=== PATIENT | male | born 1980 | race Hispanic/Latino ===

== ENCOUNTER 2018-11-23 05:38 | Observation (INO) ==
[2018-11-22 16:14] LABS: HEMATOCRIT 42.7 % (42.0-52.0); HEMOGLOBIN 13.6 g/dL (14.0-18.0); MCH 28.2 PG (27-31); MCHC 31.9 g/dL (33-37); MCV 88.4 FL (81-99); RBC 4.83 XMIL (4.7-6.1); RDW 12.5 % (11.5-14.5); WBC 10.6 X1000 (4.8-10.8)
[2018-11-22 16:27] LABS: INR 1.01; PROTIME 14.1 Seconds (11.0-16.0)
[2018-11-22 16:49] LABS: AGAP 11; BUN 11 mg/dL (8-22); CALCIUM 10.1 mg/dL (8.8-10.2); CHLORIDE 97 mmol/L (98-107); COSMO 269; CREATININE 0.7 mg/dL (0.7-1.2); ESTIMATED GFR > 60; GLUCOSE 115 mg/dL (70-104); POTASSIUM 4.1 mmol/L (3.5-5.1); SODIUM 134 mmol/L (136-145); TCO2 26 mmol/L (25-35)
[2018-11-23] MEDS ORDERED: LR 1,000 ML ONE ×2 (06:09→09:17)
[2018-11-23] MEDS ORDERED: KEFZOL 1 GM/D5W 2 GM/100 ML IVPB ONE (06:09)
[2018-11-23] MEDS ORDERED: FENTANYL ONE ×2 (07:32→08:05)
[2018-11-23] MEDS ORDERED: VALIUM ONE (07:32)
[2018-11-23] MEDS ORDERED: DIPRIVAN 1% ONE (07:32)
[2018-11-23] MEDS ORDERED: ZOFRAN ONE (07:35)
[2018-11-23] MEDS ORDERED: MORPHINE ONE (07:51)
[2018-11-23] MEDS ORDERED: MORPHINE IV PRN (09:24)
[2018-11-23] MEDS ORDERED: ZOFRAN IV PRN (09:30)
[2018-11-23] MEDS ORDERED: NORCO-7.5 ONE (09:56)
[2018-11-23] MEDS: LR 1,000 ML IV SCH (11:00)
[2018-11-23] MEDS ORDERED: FLU VACCINE IM ONE (11:25)
--- NOTE | 2018-11-23 13:22 | OPERATIVE NOTE ---
PROCEDURE DATE : 11/23/2018 PREOPERATIVE DIAGNOSES: 1. Penile cancer. 2. Right inguinal lymphadenopathy. POSTOPERATIVE DIAGNOSES: 1. Penile cancer. 2. Right inguinal lymphadenopathy. PROCEDURE PERFORMED: Partial penectomy with creation of neourethra. SURGEON: Iglesia Hdez MD MEDICARE COMPLIANCE AUDITOR: Roderikc Hampton MD ESTIMATED BLOOD LOSS: 20 mL. COMPLICATIONS: None. DRAINS: A 14 [place] silicone catheter. SPECIMENS REMOVED: Partial penectomy specimen. OPERATIVE FINDINGS: The patient has a firm mass present within the glands and distal shaft with adherent foreskin attached which was unable to be completely retracted back to visualize the tumor. The patient also has significant right inguinal lymphadenopathy and had originally undergone a biopsy by Dr. Oropeza at this location for concern for necrotic lymphadenopathy. The mass is firm and fixed both to the skin as well as the underlying subcutaneous tissues. Mass measures approximately 9-10 cm in size. Penile mass encompassed the distal 6 cm of the penis. I performed a partial penectomy with creation of neourethra and placed a 14- [place] silicone catheter. INDICATIONS FOR PROCEDURE: Mr. Rodríguez is a 38-year-old who initially presented to General Surgery for a groin mass on the right. The patient was taken for a biopsy which returned with moderate differentiated squamous cell carcinoma. He was referred to Urology for further evaluation. On exam, the patient had a very firm indurated mass present within the distal portion of the shaft and the glans of the penis. It was most prominent on the right side. The patient also had a large right inguinal lymph node that was fixed to the skin underlying tissue. Due to need to have a primary diagnosis of his cancer, the patient was consent for proceeding with partial versus complete penectomy for definitive diagnosis and remove primary site of cancer. Risks of this were discussed with the patient including bleeding, infection, urethral strictures, inability to perform the procedure or needing secondary procedures performed. After complete discussion, the patient and his family elected to proceed. DESCRIPTION OF PROCEDURE: After informed consent was obtained from the patient and his family, the patient was brought to the operating room and placed on the operating table in the supine position. He underwent general anesthesia and received preoperative antibiotics. The patient was then shaved and was prepped and draped in the usual sterile fashion. Preoperative time-out was performed with all parties in agreement, including anesthesia, surgical and nursing staff. Following this, his right inguinal area was inspected which showed a very firm indurated mass in the right groin as well as a very firm mass present within the distal penis itself. I attempted to place a glove over top of the penis and suture this in place, however, it did not stay very well. Subsequently, this was removed and the glans in the distal portion of the penis was wrapped with a Kerlix dressing to help with retraction. At which time an incision was marked on the shaft of the penis leaving approximately 4-5 cm of penile length and 1-2 cm proximal margin from the tumor specimen itself. This was outlined around the circumferential portion of the shaft with a slight V-shaped appearance at the ventral surface to leave excess ventral skin. I then using a 15 blade knife, excised this overlying skin circumferentially. I placed a tourniquet at the base of the penis with a Cathy drain. Then began using electrocautery to cauterize through the subcutaneous tissue and through the corpora. I did dissected out the dorsal venous complex and tied this off with a Vicryl suture and then excised remainder of any tissues. I was able to dissected out the urethral on the ventral surface. I did place a catheter to assist in outlining the urethra itself. I was able to dissect the corpus spongiosum away from the corpora cavernosum. Using a Cathy drain, I was able to pass this around the urethra and I dissected out the urethra for a length of approximately 1.5 to 2 cm longer than our proximal corporal cavernosal incision at which point using electrocautery, I bovied through the corpora completely. I was able to dissected through all of the corpora themselves with minimal bleeding. Once to the urethra, using a pair of Tenotomy scissors to create an adequate length of urethra, and subsequently the specimen was then removed in entirety. Following this, a new catheter was then obtained and inserted through the urethra into the bladder and inflated with 10 mL of sterile water. Attention was then placed to the corpora cavernosum. This was closed with a 2- 0 Vicryl in a running fashion, passing sutures both through the lateral corporal ponce as well as the septum. Good hemostasis was obtained and these were tied down to close over the corpora themselves at which point the tourniquet was removed and minimal bleeding was seen from the corporotomies, however, there was a small amount of bleeding on the lateral corpus cavernosum which was fulgurated. Good hemostasis was then obtained and attention was placed to forming the neourethra. The dorsal surface at the 12 o'clock position was then excised for a length of approximately 1 cm. Then starting on the ventral surface, 4-0 Vicryl were used to approximate the shaft skin to the urethra was then completed 180 degrees around the urethra. Following this, attention was placed to closing the dorsal penile skin, closing the subcutaneous tissue with a 4-0 Vicryl in a running fashion and then using 3-0 chromic suture to close the shaft skin in a running fashion until it was approximately 5 mm from the location of her dorsal urethral stitches, at which point I again used 4-0 Vicryl to create the dorsal attachment of the urethra using a Y stitch, fastening through the urethral mucosa with good eversion, and this showed good approximation and several other stitches were then intervening thrown in an interrupted fashion to bring the edges of the urethra to the skin. Following this, good hemostasis was visualized and approximation of the urethra to the skin tissue was seen circumferentially at which time Iodoform was then placed overlying the urethral tissue and a small Kerlix was then passed around the urethral stump and attached with silk tape. Next, in the inguinal area, there were 3 nylon sutures that were placed at the time of his inguinal lymph node biopsy by Dr. Oropeza. I had talked with Dr. Oropeza prior and he had recommend removal of these sutures at the end of the case, and these were removed intact. The patient's [place] catheter was placed to gravity drainage. All lap and suture counts were correct. The patient was awoken and was taken to recovery in stable condition. The patient will be monitored overnight. Will plan to hopefully discharge tomorrow. Dr. Roderick Hampton was my bricklayer's assistant and present for the entirety of the procedure. cc: Iglesia Hdez MD [facility]
[2018-11-23] MEDS: HEPARIN SUBQ SCH ×2 (15:32→17:20)
[2018-11-23] MEDS: KEFZOL 1 GM/D5W 1 GM/50 ML IVPB IV SCH ×2 (15:47→22:02)
[2018-11-23] MEDS ORDERED: PNEUMOVAX 23 IM ONE (16:00)
[2018-11-23] MEDS: NORCO-7.5 PO PRN ×2 (17:18→22:00)
[2018-11-23] MEDS ORDERED: PERIDEX MT SCH (21:00)
[2018-11-23] MEDS: COLACE PO SCH (22:00)
[2018-11-24] MEDS: NORCO-7.5 PO PRN ×2 (02:50→08:54)
[2018-11-24] MEDS: LR 1,000 ML IV SCH ×2 (02:50→05:36)
[2018-11-24] MEDS: HEPARIN SUBQ SCH (02:50)
[2018-11-24] MEDS: KEFZOL 1 GM/D5W 1 GM/50 ML IVPB IV SCH (05:35)
[2018-11-24 07:33] VITALS: BP 148/81
[2018-11-24] MEDS: COLACE PO SCH (08:34)
== END 2018-11-24 09:47 | disposition home or self-care (01) ==
LOC: OR 05:38 → 4N 05:38
PROVIDERS: ADMIT Urology; ATTEND Urology
CPT/HCPCS: 80048; 85027; 85610; 85730; 88305; 90471; 90686; 90732; 94761; 94799; 96372; 96374; 96375; 96376; A9270; G0008; G0009; G0378; G0379; J0690; J1644; J2270; J2405; J3010; J7120

== ENCOUNTER 2018-12-06 11:42 | Inpatient (IN) ==
[2018-12-06] MEDS ORDERED: REGLAN IV PRN (12:51)
[2018-12-06] MEDS ORDERED: PHENERGAN IV PRN (12:51)
--- NOTE | 2018-12-06 13:37 | HISTORY AND PHYSICAL ---
CHIEF COMPLAINT: The patient has been admitted for a 3-day treatment of his squamous cell carcinoma Penis and left inguinal lymph node. HISTORY OF PRESENT ILLNESS: Mr. Sean Suero is a 38-year-old male who has been followed up in our clinic for a penile mass and left inguinal lymph node mass. CT scan of the pelvis showed cm inguinal mass along with enlarged lymph nodes and mildly prominent iliac nodes. CT of the thorax and abdomen were negative for metastatic disease. Biopsy of the inguinal node revealed squamous cell carcinoma. The patient presented to the hospital for his first cycle of 3-day chemotherapy. The patient will be receiving Taxol, cisplatin, mannitol, and iphosphamide. We will monitor him very closely. 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 PAST SURGICAL HISTORY: Finger amputation and Port-A-Cath placement. ALLERGIES: No known drug allergies. HOME MEDICATION: Colace, [place] Port 7.5. Bactrim DS, bacitracin/polymyxin ointment. REVIEW OF SYSTEMS: Negative unless noted in HPI. PHYSICAL EXAMINATION: VITAL SIGNS: Temperature 97.8 degrees, heart rate 71, respiratory rate 19, blood pressure 140/97, saturating 100% on room air. GENERAL: Patient is awake, sitting up in bed. No acute distress noted. HEENT: Anicteric. Pupils PERRLA. Mucous membranes moist. NECK: Supple. Trachea midline. No JVD. LYMPH: No palpable lymphadenopathy, except of the left inguinal node. CHEST: Bilateral breath sounds clear to auscultation. CARDIOVASCULAR: S1 and S2, regular rate and rhythm. ABDOMEN: Soft, nontender. Bowel sounds present in all 4 quadrants. SKIN: Warm, dry, and intact. NEUROLOGIC: Alert and oriented x3. No focal deficits noted. LABORATORY DATA: White blood cell count 9.7, hemoglobin 12.7, hematocrit 40.0, platelets are 359. Sodium 137, potassium 4.5, BUN 11, creatinine 0.8. ASSESSMENT AND PLAN: 1. 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 The patient will be receiving cisplatin, mannitol, Ifex chemotherapy. This will be his first cycle. We will need to monitor very closely for any side effects. We will continue to monitor very closely. 2. Antinausea prophylaxis. Patient received Emend, Zofran and Decadron prior to treatment. The patient also has p.r.n. IV medications as ordered if needed. We will continue to monitor nausea closely. 3. Possible hematuria: We will monitor very closely for hematuria which is a side effect of medication. Patient will be receiving mesna daily over the next 3 days. We will continue to monitor very closely. 4. Neutropenia precautions: Patient will receive Neulasta prior to being discharged. We will also monitor for any fevers greater than 100.5. We will continue to monitor labs and CBCs very closely. 5. Supportive care: Patient will continue to get out of bed as much as possible. Patient will continue with protein shakes as instructed. Patient will continue with exercise as instructed as well. Dictated by VINNIE Traylor for Danis Sandoval MD Patient seen and examined. 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 He will receive Taxol, ifosfamide, cisplatin chemotherapy at monitor closely. Danis Sandoval M.D. cc: VINNIE Traylor MD [facility]
[2018-12-06] MEDS ORDERED: NS IV ONE ×6 (14:30→20:00)
[2018-12-06] MEDS ORDERED: ZOFRAN IV ONE (14:30)
[2018-12-06] MEDS ORDERED: DECADRON IV ONE (14:30)
[2018-12-06] MEDS ORDERED: NS 1,000 ML IV SCH (14:30)
[2018-12-06] MEDS ORDERED: EMEND 150 MG in NS 145 ML IV ONE (15:00)
[2018-12-06] MEDS ORDERED: [UNRECOGNIZED DRUG - OTHER] IV ONE ×2 (15:30→17:30)
[2018-12-06] MEDS ORDERED: MANNITOL IV ONE ×2 (15:30→17:30)
[2018-12-06] MEDS ORDERED: TAXOL IV ONE (16:30)
[2018-12-06] MEDS: ULTRAM PO PRN (18:16)
[2018-12-06] MEDS ORDERED: [UNRECOGNIZED DRUG - OTHER] IV ONE (20:00)
[2018-12-06] MEDS ORDERED: MESNA IV ONE (20:00)
--- NOTE | 2018-12-07 06:28 | GENERAL SURGERY CONSULTATION ---
DATE: 12/07/2018 REQUESTING PHYSICIAN: Dr. Sandoval. REASON FOR CONSULTATION: Port placement. HISTORY OF PRESENT ILLNESS: A 38-year-old male well known to me, who has got squamous cell cancer of his penis that is positive for lymph nodes. I initially saw him for the large lymph node. He has subsequently had partial resection of his penis and he has been started on chemotherapy. I was asked to place a port. The patient is without complaints right now. PAST MEDICAL HISTORY: Squamous cell carcinoma of the penis with inguinal lymphadenopathy. PAST SURGICAL HISTORY: Includes lymph node biopsy and penile resection. ALLERGIES: None. HOME MEDICATIONS: Reviewed. FAMILY HISTORY: Reviewed with patient, noncontributory. REVIEW OF SYSTEMS: A full 10-point review of systems obtained, negative except as specified in HPI. PHYSICAL EXAMINATION: Vital Signs: Patient is currently afebrile. His vital signs stable. General: No acute distress. HEENT: Normocephalic, atraumatic. Pupils equal, round, reactive to light. Mucous membranes moist. Oropharynx benign. Neck: Supple. Trachea midline. Cardiovascular: Regular rate and rhythm. Lungs: Grossly clear. Abdomen: Soft, nontender, nondistended. Extremities: Moves all extremities. Neurologic: Grossly intact. Skin: No signs of jaundice. Vascular: All extremities perfused. LABORATORY: None this morning as of yet IMAGING: None. ASSESSMENT AND PLAN: A 38-year-old gentleman with squamous cell carcinoma of the penis with lymphadenopathy. Squamous cell carcinoma. At this time, we will plan on placement of a port tomorrow. Make him NPO. We will have IV antibiotics ordered for insulation cutter and former to the operating room. We will get consent. Discussed with patient the risks, benefits, alternatives for the port placement. Risks including but not limited to bleeding, infection, risk of anesthesia, risk of pneumothorax discussed. Again, we will plan on placement tomorrow. cc: MD Danis Coburn MD
[2018-12-07] MEDS: ULTRAM PO PRN ×2 (09:44→20:06)
--- NOTE | 2018-12-07 13:30 | HEMO/ONC PROGRESS NOTE ---
DATE: 12/07/2018 SUBJECTIVE: Patient is tolerating chemotherapy well at this time. Patient says he is still well. No signs of hematuria. Patient has no complaints at this time. OBJECTIVE: Vital Signs: Temperature 97.5 degrees, heart rate 63, respiratory rate 16, blood pressure 120/69, satting 100% on room air. General: Patient is awake, lying in bed, no acute distress noted. HEENT: Anicteric. Pupils PERRLA. Mucous membranes moist. Cardiovascular: S1, S2. Regular rate and rhythm. Chest: Bilateral breath sounds. Clear to auscultation. Abdomen: Soft, nontender. Bowel sounds present in all 4 quadrants. Neurologic: Alert and oriented x3. No focal deficits noted. ASSESSMENT AND PLAN: 1. 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 The patient will continue with treatment. We will continue to monitor closely. We will get labs in the morning. We will continue to monitor very closely. 2. Antinausea prophylaxis: Patient continued receiving Zofran and Decadron prior to treatments. The patient's nausea is very well controlled. Patient does have medications as needed. We will continue to monitor. 3. Possible hematuria: No hematuria at this time. Patient will continue to receive mesna daily. We will continue to monitor closely. 4. Neutropenia precautions: We will continue to monitor for any fevers greater than 100.5. We will continue to monitor closely. 5. Supportive care: Patient will be eating as much as possible. Patient will continue with protein shakes as instructed. The patient will continue medications as instructed as well. 6. Port-A-Cath: The patient will be getting Port-A-Cath placement tomorrow. Continue recommendations per surgeon. Dictated by VINNIE Traylor for Danis Sandoval MD cc: VINNIE Traylor MD
[2018-12-07] MEDS ORDERED: ZOFRAN 16 MG in NS 100 ML IV ONE (20:00)
[2018-12-07] MEDS ORDERED: NS 1,000 ML IV ONE (20:00)
[2018-12-07] MEDS ORDERED: NS IV ONE ×4 (21:00→22:00)
[2018-12-07] MEDS ORDERED: MANNITOL IV ONE (21:00)
[2018-12-07] MEDS ORDERED: [UNRECOGNIZED DRUG - OTHER] IV ONE (21:00)
[2018-12-07] MEDS ORDERED: [UNRECOGNIZED DRUG - OTHER] IV ONE (22:00)
[2018-12-07] MEDS ORDERED: MESNA IV ONE (22:00)
[2018-12-07] MEDS ORDERED: [UNRECOGNIZED DRUG - OTHER] IV ONE (22:00)
[2018-12-08] MEDS: ULTRAM PO PRN ×3 (05:20→21:19)
--- NOTE | 2018-12-08 06:27 | GENERAL SURGERY PROGRESS NOTE ---
DATE: 12/08/2018 SUBJECTIVE: The patient actively receiving chemotherapy and will be receiving chemotherapy today. OBJECTIVE: Vital Signs: The patient is currently afebrile. His vital signs are stable. General: No acute distress. HEENT: Normocephalic, atraumatic. Pupils equal, round, reactive to light. Mucous membranes moist. Oropharynx benign. Neck: Supple. Trachea midline. Cardiovascular: Regular rate and rhythm. Lungs: Grossly clear. Abdomen: Soft, nontender, nondistended. Extremities: Moves all extremities. Neurologic: Grossly intact. Skin: No signs of jaundice. Vascular: All extremities perfused. ASSESSMENT AND PLAN: A 38-year-old gentleman with squamous cell cancer of the penis with positive lymph nodes. Squamous cell cancer. At this time, will discuss with Dr. Sandoval. The patient is actively receiving chemotherapy. May need to hold off on port placement, but we do have him on the schedule for today. He is NPO. We again discuss with Dr. Sandoval today. cc: MD Danis Coburn MD
[2018-12-08 08:02] LABS: BASO# 0.02 X1000 (0.0-0.2); BASO% 0.2 % (0.0-0.8); EOS# 0.05 X1000 (0.0-0.7); EOS% 0.4 % (0.0-10.0); HEMATOCRIT 37.1 % (42.0-52.0); HEMOGLOBIN 11.7 g/dL (14.0-18.0); IMM GRAN# 0.02 X1000 (0.0-0.04); IMM GRAN% 0.2 % (0.0-0.5); LYMPH% 18.4 % (20.5-51.1); MCH 27.3 PG (27-31); MCHC 31.5 g/dL (33-37); MCV 86.7 FL (81-99); MONO# 0.61 X1000 (0.11-0.59); MONO% 5.4 % (1.7-9.3); MPV 9.8 FL (7.4-10.4); NEUT# 8.59 X1000 (1.4-6.5); NEUT% 75.4 % (42.2-75.2); PLT 308 X1000 (130-400); RBC 4.28 XMIL (4.7-6.1); RDW 12.5 % (11.5-14.5); WBC 11.39 X1000 (4.8-10.8)
[2018-12-08 08:28] LABS: AGAP 10; ALB/GLOB RATIO 0.9; ALBUMIN 3.5 g/dL (3.5-5.0); ALKALINE PHOSPHATASE 70 U/L (32-122); BUN 11 mg/dL (8-22); CALCIUM 8.1 mg/dL (8.8-10.2); CHLORIDE 103 mmol/L (98-107); COSMO 273; CREATININE 0.5 mg/dL (0.7-1.2); ESTIMATED GFR > 60; GLUCOSE 96 mg/dL (70-104); GOT 21 U/L (10-34); GPT 42 U/L (10-44); POTASSIUM 3.6 mmol/L (3.5-5.1); SODIUM 137 mmol/L (136-145); TCO2 24 mmol/L (25-35); TOTAL BILIRUBIN 0.27 mg/dL (0.20-1.00); TOTAL PROTEIN 7.4 g/dL (6.3-8.3)
[2018-12-08] MEDS ORDERED: KEFZOL 1 GM/D5W 1 GM/50 ML IVPB IV ONE (10:00)
--- NOTE | 2018-12-08 10:02 | DISCHARGE SUMMARY ---
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 PROCEDURES: Patient had Port-A-Cath placement while in the hospital. Patient completed 3 day round of chemotherapy. BRIEF SUMMARY: Patient had his first cycle of chemotherapy with TIP and neulasta while in the hospital. Patient tolerated treatment very well. Patient has no complaints at this time, and will be discharged home with follow-up instruction to follow up in clinic next week. DISCHARGE MEDICATIONS: Same medications as prior to hospitalization. FOLLOW UP: Patient will follow up in clinic next week for further lab work. The patient notes he has an appointment already, and knows to make sure to keep that appointment for further evaluation. Dictated by VINNIE Traylor for Danis Sandoval MD cc: VINNIE Traylor MD [facility]
[2018-12-08] MEDS ORDERED: NS 1,000 ML IV ONE (20:00)
[2018-12-08] MEDS ORDERED: [UNRECOGNIZED DRUG - OTHER] IV ONE (21:00)
[2018-12-08] MEDS ORDERED: MANNITOL IV ONE (21:00)
[2018-12-08] MEDS ORDERED: ZOFRAN 16 MG in NS 100 ML IV ONE (21:00)
[2018-12-08] MEDS ORDERED: NS IV ONE ×3 (21:00→22:00)
[2018-12-08] MEDS ORDERED: MESNA IV ONE (22:00)
[2018-12-08] MEDS ORDERED: [UNRECOGNIZED DRUG - OTHER] IV ONE (22:00)
[2018-12-09] MEDS ORDERED: MAALOX PLUS LIQUID PO ONE (00:56)
[2018-12-09] MEDS ORDERED: ZANTAC PO ONE (00:57)
[2018-12-09] MEDS: ULTRAM PO PRN ×3 (02:41→19:37)
[2018-12-09 03:08] LABS: BASO# 0.03 X1000 (0.0-0.2); BASO% 0.3 % (0.0-0.8); EOS# 0.29 X1000 (0.0-0.7); EOS% 2.8 % (0.0-10.0); HEMATOCRIT 36.2 % (42.0-52.0); HEMOGLOBIN 11.5 g/dL (14.0-18.0); IMM GRAN# 0.02 X1000 (0.0-0.04); IMM GRAN% 0.2 % (0.0-0.5); LYMPH% 14.6 % (20.5-51.1); MCH 27.4 PG (27-31); MCHC 31.8 g/dL (33-37); MCV 86.4 FL (81-99); MONO# 0.24 X1000 (0.11-0.59); MONO% 2.3 % (1.7-9.3); MPV 9.7 FL (7.4-10.4); NEUT# 8.19 X1000 (1.4-6.5); NEUT% 79.8 % (42.2-75.2); PLT 285 X1000 (130-400); RBC 4.19 XMIL (4.7-6.1); RDW 12.5 % (11.5-14.5); WBC 10.27 X1000 (4.8-10.8)
[2018-12-09 03:35] LABS: AGAP 11; BUN 9 mg/dL (8-22); CALCIUM 9.6 mg/dL (8.8-10.2); CHLORIDE 97 mmol/L (98-107); CK PROFILE 63 U/L (24-204); COSMO 268; CREATININE 0.5 mg/dL (0.7-1.2); ESTIMATED GFR > 60; GLUCOSE 117 mg/dL (70-104); MAGNESIUM 1.7 mg/dL (1.5-2.7); POTASSIUM 4.2 mmol/L (3.5-5.1); SODIUM 134 mmol/L (136-145); TCO2 26 mmol/L (25-35)
--- NOTE | 2018-12-09 06:33 | GENERAL SURGERY PROGRESS NOTE ---
DATE: 12/09/[address] Sandoval. We held off on his port placement. We will try to plan it on Wednesday. Discussed with the patient the risks, benefits, and alternatives. We will potentially do this as an outpatient procedure on Wednesday. cc: MD Danis Coburn MD
--- NOTE | 2018-12-09 06:53 | Diag Imaging Result Doc PS360 ---
EXAM: CHEST-PORTABLE HISTORY: SOB and CP TECHNIQUE: Portable chest single view COMPARISON: None. FINDINGS: The lungs are well expanded. The heart is not enlarged. The vessels are not distended. There are no infiltrates. No effusion identified. IMPRESSION: Negative exam. Electronically signed by Reginald Mckinnon 12/09/2018 6:51 AM
--- NOTE | 2018-12-09 06:58 | EKG Report ---
Test Performed on : 12/09/2018 01:20:01 AM Test Reason : chest discomfort Blood Pressure : / mmHG Vent. Rate : 077 BPM Atrial Rate : 077 BPM P-R Int : 134 ms QRS Dur : 078 ms QT Int : 378 ms P-R-T Axes : 031 003 029 degrees QTc Int : 427 ms Normal sinus rhythm. Minimal voltage criteria for LVH, may be normal variant Borderline ECG No previous ECGs available Unconfirmed Result
--- NOTE | 2018-12-09 07:37 | EKG Report ---
Test Performed on : 12/09/2018 07:06:56 AM Test Reason : CP Blood Pressure : / mmHG Vent. Rate : 079 BPM Atrial Rate : 079 BPM P-R Int : 126 ms QRS Dur : 084 ms QT Int : 366 ms P-R-T Axes : 030 006 029 degrees QTc Int : 419 ms Normal sinus rhythm. Minimal voltage criteria for LVH, may be normal variant Borderline ECG When compared with ECG of 09-DEC-2018 01:20, (Unconfirmed) No significant change was found Unconfirmed Result
--- NOTE | 2018-12-09 10:48 | CONSULTATION ---
DATE OF CONSULTATION: 12/09/2018 PHYSICIAN REQUESTING CONSULTATION: Danis Sandoval MD. REASON FOR CONSULTATION: Chest pain. HISTORY OF PRESENT ILLNESS: Mr. Sean Suero is a 38-year-old male, who has been diagnosed with squamous cell carcinoma of his penis with right inguinal lymphadenopathy. The patient is status post partial penectomy with creation of neourethra with Dr. Hdez on 11/23/2018. He has subsequently been started on chemotherapy followed by Dr. Sandoval. This evening at approximately 1:30 while receiving a chemotherapy treatment the patient did begin to complain of chest pain. He complains of chest pain that was in the center of his chest, it was nonradiating. The patient would not describe the nature of his pain. He did report that he did have to work hard to take a deep breath during this time and also the pain did make him feel as though he had to cough. Other than the shortness of breath, the patient denied any other symptoms. He denied any dizziness, lightheadedness, near syncope, diaphoresis, nausea, vomiting, or abdominal pain. The patient is having pain in his right groin area though this is not of new onset. The nurse did contact Dr. Sandoval, who did request holding his chemotherapy for 1 hour and did give him medications of Zantac and Maalox, and he ordered an EKG to be performed and to consult the Hospitalist for evaluation of his chest pain. After being given Maalox and Zantac, the patient's chest pain did subside. He reported that his chest pain lasted about 20 minutes. He states that since his chest pain has subsided that it has not returned. His EKG performed showed normal sinus rhythm at a rate of 77 with QTc of 427. There does not appear to be any acute EKG changes though we do not have any previous EKG for comparison at this time. CK and troponin were both negative. REVIEW OF SYSTEMS: A 14-point review of systems was conducted with the patient and all were negative except for pertinent positives mentioned above in the HPI. The patient denies any headache, dizziness, abdominal pain, nausea, vomiting, dysuria, or urinary frequency. He denies any pain, numbness, tingling, or swelling in extremities. He also denies any fever, body aches, or chills. 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 PAST SURGICAL HISTORY: 1. Right index finger amputation. 2. Status post partial penectomy with creation of neourethra and lymph node biopsy with Dr. Hdez on 11/23/2018. SOCIAL HISTORY: The patient is a former smoker. There is no known history of alcohol or illicit drug use. FAMILY HISTORY: Positive for his father having a coronary artery bypass graft secondary to a myocardial infarction at age 63. ALLERGIES: The patient reports no known allergies. HOME MEDICATIONS: Oxycodone 10 mg p.o. q.8 hours p.r.n. for pain. DIAGNOSTIC DATA/LABORATORY RESULTS: White blood cell count is 10,270, hemoglobin 11.5, hematocrit 36.2, platelet count is 285. Sodium 134, potassium 4.2, chloride 97, serum bicarb is 26, BUN 9, creatinine 0.5, glucose 117, calcium 9.6, magnesium 1.7. Liver function tests within normal limits. CK 63, troponin less than 0.01. EKG shows normal sinus rhythm at a rate of 77 with a QTc of 427. PHYSICAL EXAMINATION: VITAL SIGNS: Temperature 98.3, heart rate 82, respirations 18, blood pressure 133/72, oxygen saturation is 98% on room air. GENERAL: Mr. Sean Suero is a pleasant 38-year-old male who is resting in the inpatient bed. He was in no acute distress. He is awake, alert, and able to answer questions appropriately. HEENT: Head is atraumatic, normocephalic. Pupils are equal, round, reactive to light, were 3 mm bilaterally and brisk. Oral mucosa was moist. NECK: Supple, trachea midline. CARDIOVASCULAR: The patient has normal S1 and S2, no murmurs, gallops, or rubs appreciated, with a regular rate and rhythm. PULMONARY: The patient has symmetrical chest expansion bilaterally. Lung sounds were clear to auscultation in bilateral full garcia. ABDOMEN: Soft, nontender, nondistended. Bowel sounds are present in all 4 quadrants, were normoactive. GENITOURINARY: The patient does have a large approximately softball sized mass noted to his right groin. This area is tender to palpation. The patient's nurse, Divina, was present at bedside with me during the patient's entire exam. EXTREMITIES: No cyanosis, clubbing, or edema noted. Pulse, motor, and sensory were intact all extremities. Radial pulses and pedal pulses are 2+ bilaterally. INTEGUMENTARY: The patient's skin is pink, warm, and dry. NEUROLOGICAL: The patient is alert and oriented to person, place, time, and situation. There were no focal neurological deficits noted. ASSESSMENT AND PLAN: 1. Chest pain. At this time, the patient's chest pain has subsided. His chest pain did subside after administration of Zantac and Maalox. It may be possible that the patient's chest pain was related to heartburn or indigestion. Though will continue to further evaluate this. We have ordered repeat cardiac enzymes. We will repeat an EKG later on this morning. The patient did report some shortness of breath at the time of his chest pain that has subsided as well, though we have ordered a chest x-ray for further evaluation as well. We will await the results of these diagnostic studies and continue to follow closely. 2. Squamous cell carcinoma of the penis with inguinal lymphadenopathy. We will defer further management of this to Dr. Sandoval and we will follow along. The patient is on the Medical floor with telemetry. Will do vital signs q.4 hours. We did utilize [employer] for the history and physical of this patient. Further orders and recommendations pending hospital course, diagnostic studies, and physician evaluation. Dictated by VINNIE Wallace for Ruben Zepeda MD cc: MD Eddi Earl MD
--- NOTE | 2018-12-09 11:24 | HEMO/ONC PROGRESS NOTE ---
DATE: 12/09/2018 SUBJECTIVE: Patient had some trouble throughout the night with shortness of breath, chest pain. The patient is better at this time. The patient did say there is some mild blood in his urine this morning. OBJECTIVE: Vital signs:Temperature 98.3 degrees, heart rate 71, respiratory rate 18, blood pressure 127/70, saturating 97% on room air. General: Patient is awake, lying in bed, no acute distress noted. HEENT: Anicteric. Pupils PERRLA. Mucous membranes moist. Cardiovascular: S1, S2. Regular rate and rhythm. Chest: Bilateral breath sounds. Clear to auscultation. Abdomen: Soft, nontender. Bowel sounds present in all 4 quadrants. Neurologic alert orient x3. No focal deficits noted. LABORATORY DATA: White blood count 10.27, hemoglobin 9.5, hematocrit 36.2, platelets are 285. Potassium 4.2, BUN 9, creatinine 0.5. ASSESSMENT AND PLAN: 1. 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 Patient finishing up with chemotherapy. The patient overall has tolerated chemotherapy very well. We will continue to monitor patient very closely. 2. Hematuria: The patient complains of mild hematuria this morning. The patient received mesna over the past 3 days with chemotherapy. Continue to monitor very closely. 3. Antinausea prophylaxis: The patient has p.r.n. medications as needed that he can take for nausea. The patient has not had any nausea at this time. We will continue to monitor. 4. Neutropenia precautions. Continue to monitor for fever. White cell count continue to be stable at 10.27. Continue to monitor closely. 5. Supportive care: The patient will continue to get out of bed as much as possible. The patient will continue to use medications as instructed. 6. Port-A-Cath placement put on hold. He will get that as an outpatient on Wednesday. 7. Plan of care discussed with Dr. Sandoval. Dictated by VINNIE Traylor for Danis Sandoval MD cc: VINNIE Traylor MD Raphael K. Quansah, MD MTDD
[2018-12-09] MEDS ORDERED: ZYRTEC PO ONE (13:30)
[2018-12-09] MEDS ORDERED: ZYVOX 600 MG/D5W 600 MG/300 ML IVPB IV ONE (14:14)
[2018-12-09] MEDS ORDERED: MAXIPIME 2 GM in NS 100 ML IV ONE (14:14)
--- NOTE | 2018-12-09 16:01 | PROGRESS NOTE ---
DATE: 12/09/2018 SUBJECTIVE: This morning Mr. Estrada refers to be doing fairly okay. He did have some chest discomfort yesterday or early this morning, which he said he was given some medication. It appears he was given Maalox which improved the chest discomfort. Today, he refers that he is completely asymptomatic. OBJECTIVE: Vital signs: Blood pressure 142/90, pulse 79, respiration 18, and temperature is 98.2 degrees. General: Mr. Estrada is a 38-year-old male. He is in bed in no distress. Mucosa is pink and moist. Anicteric. Acyanotic. Neck: Supple. Chest: Clear to auscultation. There was no crepitations. No rhonchi. Cardiovascular: Regular rate and rhythm. There were no murmurs. No rubs. No gallops. Abdomen: Soft and nontender. Bowel sounds present. Extremities: In the inguinal region, the right inguinal region has huge mass which is firm and is hard. The overlying skin looks edematous and with erythematous changes. There is also some lobulations on top of it, some of it seems to have some fluctuations. Neurologic: Patient is awake, alert, and oriented. There is no focal neurological deficit. LABORATORY DATA: WBC is 10.27, hemoglobin is 11.5, platelet count of 285,000. Chemistry is also reviewed and unremarkable. ASSESSMENT: 1. 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 The patient is status post partial penectomy with creation of new urethra by Dr. Hdez on 11/25/2018. 2. Right inguinal lymphadenopathy with superimposed suspected infection. We will give the patient a dose of IV cefepime and Zyvox, and I will start him home on Augmentin with doxycycline. We would not use Zyvox because we anticipate after the chemo patient is going to be, all of his numbers are likely going to reduce, and we do not want Zyvox to contribute to this anticipated bone marrow suppression. 3. Transient episode of chest pain which resolved with Maalox. We will start the patient on some omeprazole. 4. Nauseation improved. In general from medical standpoint, we think Mr. Estrada would be okay for discharge after his chemotherapy. He will need to be on Augmentin and doxycycline for the suspected superimposed infection of the right inguinal mass. I have discussed this plan with him, and have also communicated with his oncologist, and he is okay with the plan. Please refer to the details of the discharge summary which was done yesterday. cc: Eddi Bentley MD MTDD
[2018-12-09] MEDS ORDERED: NEULASTA SUBQ ONE (18:00)
[2018-12-09 18:03] VITALS: BP 154/91
--- NOTE | 2018-12-10 08:53 | ECHO REPORT ---
ORDER DATE: 12/09/2018 INDICATION: Chest pain. M-MODE MEASUREMENTS: Left ventricle end diastole: 5.3. Left ventricle end systole: 3.5. Posterior wall: 0.8. Interventricular septum: 0.8 Left atrium: 3.5. Aortic root: 3.3. SUMMARY OF 2-DIMENSIONAL IMAGIN. Left ventricular function is normal. Ejection fraction is estimated at 60% to 65%. There is no wall motion abnormality. 2. The left ventricle appears to be normal. 3. The right-sided and left-sided chambers appear to be normal in size. 4. The aortic valve has 3 cusps. They open normally. Color flow mapping. 5. The pulmonic valve is normal. Color flow mapping unremarkable. 6. Optison was injected for optimization of the endocardium. 7. The mitral valve looks grossly normal. Color flow mapping unremarkable. 8. Pulsed wave Doppler of mitral inflow shows a normal E/A ratio. 9. Tissue Doppler of septal and lateral mitral annulus averages 11 cm. 10.There is no diastolic dysfunction. 11.The pulmonic valve appears to be grossly normal. Pulmonary venous flow is normal. SUMMARY: This study shows: 1. Normal left ventricular systolic function. 2. No diastolic dysfunction. 3. No evidence of any significant valvular abnormality. 4. The aortic, mitral, tricuspid and pulmonic valves appear to be grossly normal. 5. There is no definite pulmonary hypertension. 6. Optison was injected for visualization of the endocardium. Clinical correlation recommended. cc: MD Eddi Bynum MD
== END 2018-12-09 19:50 | disposition home or self-care (01) | DRG 847 ==
LOC: DIRADM 11:42 → 3N 11:57
PROVIDERS: ADMIT Internal Medicine; ATTEND Internal Medicine Medical Oncology
CPT/HCPCS: 71010; 71045; 80048; 80053; 82550; 83735; 84484; 85025; 87070; 93005; 93306; A9270; C8929; J0692; J1453; J2020; J2150; J2405; J2505; J7030; J7040; J7050; J9060; J9208; J9209; J9265; J9267; Q9957

== ENCOUNTER 2018-12-27 14:06 | Inpatient (IN) ==
[~2018-12-27 14:06] MED LIST: MESNA IV ONE; NS IV ONE; [UNRECOGNIZED DRUG - OTHER] IV ONE
[2018-12-27] MEDS ORDERED: REGLAN IV PRN (18:11)
[2018-12-27] MEDS ORDERED: PHENERGAN IV PRN (18:11)
[2018-12-27] MEDS ORDERED: SODIUM CHLORIDE 0.9% INJ PRN (18:15)
[2018-12-27] MEDS: NORCO-7.5 PO PRN (18:37)
[2018-12-27] MEDS: NS 1,000 ML IV SCH (18:37)
[2018-12-27] MEDS ORDERED: DECADRON IV ONE (19:00)
[2018-12-27] MEDS ORDERED: NS 1,000 ML IV SCH (19:00)
[2018-12-27] MEDS ORDERED: ZOFRAN IV ONE (19:00)
[2018-12-27] MEDS ORDERED: NS IV ONE ×3 (19:00→23:00)
[2018-12-27] MEDS ORDERED: EMEND 150 MG in NS 145 ML IV ONE (19:30)
--- NOTE | 2018-12-27 19:31 | HISTORY AND PHYSICAL ---
PRIMARY ONCOLOGIST: Danis Sandoval MD. REASON FOR ADMISSION: Medical management. Patient is being admitted for chemotherapy. HISTORY OF PRESENT ILLNESS: This is a 38-year-old all cough male who has been diagnosed with squamous cell carcinoma of his penis with right inguinal lymphadenopathy. He has been admitted by Dr. Sandoval for chemotherapy. We were called for admission for medical management. He denies any signs of infection like fever, cough, or any urinary symptoms. He had received first session of chemo at the beginning of the month. He denies any other symptoms. 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 PAST SURGICAL HISTORY: 1. Right index finger amputation. 2. Status post partial penectomy with creation of neourethra and lymph node biopsy by Dr. Hdez on 11/23/2018. SOCIAL HISTORY: The patient denies drinking any alcohol or using illicit drugs. Patient used to smoke but not anymore. FAMILY HISTORY: Positive for father with coronary artery disease and CABG at age 63. ALLERGIES: No known drug allergies. MEDICATIONS: He is not on any scheduled medications, just pain medication and nausea medication. REVIEW OF SYSTEMS: Eleven systems were reviewed and all symptoms are related to H and P. PHYSICAL EXAMINATION: VITAL SIGNS: Temperature 98 degrees, heart rate 80, respiratory rate 18, blood pressure 140/96, O2 saturation 98% on room air. GENERAL EXAMINATION: This is a 38-year-old male, lying in bed, in no acute distress. HEENT: Head is normocephalic, atraumatic. Pupils equal, round, reactive to light and accommodation. NECK: No JVD noted. No carotid bruits. No lymphadenopathy or thyromegaly. CARDIOVASCULAR: S1, S2 heard. No murmurs, gallops, or rubs. Regular rate and rhythm. RESPIRATORY: Clear bilaterally to auscultation. No work of breathing or using accessory muscles. ABDOMEN: Soft, nontender to palpation. Bowel sounds present. No organomegaly. GENITOURINARY: Patient has approximately 5 to 6 cm mass noted in the right inguinal area mildly tender to palpation with some drainage. EXTREMITIES: No clubbing, cyanosis, or edema. Peripheral pulses present in both legs. NEUROLOGIC EXAM: Patient alert and oriented x3. Moves 4 extremities. LABORATORY DATA: The patient has been just admitted to the hospital directly from Dr. Sandoval's office and no labs or any other ancillary exams available. ASSESSMENT AND PLAN: Squamous cell carcinoma of the penis with right inguinal lymphadenopathy. The patient has been admitted to the hospital for chemotherapy. Dr. Sandoval has been consulted. We will follow recommendations. At this point, there are no lab tests. We are going to order CBC and BMP daily. The primary oncology team has decided to start IV fluids and also they have directed chemotherapy with Platinol 50 mg as well and they are going also to manage pain medication as well. We will follow this patient closely. cc: Ruben Zepeda MD
[2018-12-27] MEDS ORDERED: TAXOL IV ONE (20:00)
[2018-12-27] MEDS ORDERED: MANNITOL IV ONE (23:00)
[2018-12-27] MEDS ORDERED: [UNRECOGNIZED DRUG - OTHER] IV ONE (23:00)
[2018-12-27] MEDS ORDERED: BENADRYL IV ONE (23:10)
[2018-12-27] MEDS ORDERED: SOLU-MEDROL IV ONE (23:10)
[2018-12-27] MEDS ORDERED: PEPCID IV ONE (23:10)
[2018-12-27] MEDS ORDERED: SODIUM CHLORIDE 0.9% INJ ONE (23:10)
[2018-12-28] MEDS ORDERED: MESNA IV ONE ×2
[2018-12-28] MEDS ORDERED: [UNRECOGNIZED DRUG - OTHER] IV ONE ×2
[2018-12-28] MEDS: NS 1,000 ML IV SCH ×4 (06:12→21:30)
[2018-12-28 06:30] LABS: BASO# 0.01 X1000 (0.0-0.2); BASO% 0.1 % (0.0-0.8); HEMATOCRIT 35.7 % (42.0-52.0); HEMOGLOBIN 11.3 g/dL (14.0-18.0); IMM GRAN# 0.08 X1000 (0.0-0.04); IMM GRAN% 0.8 % (0.0-0.5); LYMPH# 0.49 X1000 (1.2-3.4); LYMPH% 4.8 % (20.5-51.1); MCH 27.2 PG (27-31); MCHC 31.7 g/dL (33-37); MCV 85.8 FL (81-99); MONO# 0.03 X1000 (0.11-0.59); MONO% 0.3 % (1.7-9.3); MPV 9.1 FL (7.4-10.4); NEUT# 9.64 X1000 (1.4-6.5); PLT 405 X1000 (130-400); RBC 4.16 XMIL (4.7-6.1); RDW 12.9 % (11.5-14.5); WBC 10.25 X1000 (4.8-10.8)
[2018-12-28 06:45] LABS: LYMPHS 2 % (21-51); SEGS 98 % (42-75)
[2018-12-28 06:48] LABS: AGAP 10; ALB/GLOB RATIO 0.8; ALBUMIN 3.2 g/dL (3.5-5.0); ALKALINE PHOSPHATASE 84 U/L (32-122); BUN 9 mg/dL (8-22); CALCIUM 8.8 mg/dL (8.8-10.2); CHLORIDE 102 mmol/L (98-107); COSMO 277; CREATININE 0.5 mg/dL (0.7-1.2); ESTIMATED GFR > 60; GLUCOSE 174 mg/dL (70-104); GOT 17 U/L (10-34); GPT 42 U/L (10-44); POTASSIUM 4.2 mmol/L (3.5-5.1); SODIUM 137 mmol/L (136-145); TCO2 25 mmol/L (25-35); TOTAL BILIRUBIN 0.38 mg/dL (0.20-1.00); TOTAL PROTEIN 7.2 g/dL (6.3-8.3)
--- NOTE | 2018-12-28 08:22 | HEMO/ONC CONSULTATION ---
DATE: 12/28/2018 CHIEF COMPLAINT: We are being consulted for further management of patient's squamous cell carcinoma of the penis and left inguinal lymph node metastasis. HISTORY OF PRESENT ILLNESS: Mr. Raj Suero is a 38-year-old male that is being admitted to the hospital for his 3-day rounds of chemotherapy. The patient said he has tolerated his first cycle extremely well. This is his 2nd cycle of chemotherapy. CT scan of this pelvis showed an inguinal mass with enlarged lymph nodes and mildly prominent iliac nodes. CT of the thorax and abdomen were negative for metastatic disease. Biopsy of the wound revealed squamous cell carcinoma. The patient was admitted to the hospital for 3-day chemotherapy where he will be receiving Taxol, cisplatin, mannitol and ifosfamide for his 2nd cycle of treatment. PAST MEDICAL HISTORY: Squamous cell carcinoma of the left inguinal lymph node penile mass. PAST SURGICAL HISTORY: Finger amputation and Port-A-Cath placement. ALLERGIES: No known drug allergies. HOME MEDICATIONS: Colace, [place] 7.5, Bactrim DS, doxycycline, Reglan, Zyrtec, omeprazole and tramadol. SOCIAL HISTORY: Patient denies any alcohol, illicit drug use. Quit smoking. FAMILY HISTORY: Coronary artery disease, and CABG. REVIEW OF SYSTEMS: Negative other than mentioned in history of present illness. PHYSICAL EXAMINATION: Vital Signs: Temperature 97.9 degrees, heart rate 60, respiratory rate 18, blood pressure 150/74, saturating 100% on room air. General: Patient is awake, lying in bed, in no acute distress noted. HEENT: Anicteric. Pupils PERRLA. Mucous membranes appear moist. Cardiovascular: S1, S2. Regular rate and rhythm. Chest: Bilateral breath sounds. Clear to auscultation. Abdomen: Soft, nontender. Bowel sounds present in all 4 quadrants. Neurologic: Alert and oriented x3. No focal deficits noted. Neck: Supple. Trachea midline. No JVD. Lymph node survey: No palpable lymph nodes except for the right inguinal node. LABORATORY DATA: White blood cell count 10.25, hemoglobin 11.3, hematocrit 35.7, platelets are 405,000. Potassium 4.2, BUN 9, creatinine 0.5. ASSESSMENT AND PLAN: 1. Squamous cell carcinoma of penis with right inguinal lymph node involvement: The patient receiving his 3-day treatment of chemotherapy while in the hospital. The patient tolerated the 1st cycle extremely well. Patient receiving cisplatin, mannitol, ifosfamide chemotherapy. We will monitor laboratories extremely closely. 2. Antinausea prophylaxis: Patient will receive Zofran and Decadron prior to treatments. Patient also has p.r.n. medications ordered as needed. We will continue to monitor nausea very closely. 3. Cystitis prophylaxis: Patient hematuria is side effect of medication. Patient will receive mesna daily over the next 3 days. Continue to monitor closely. 4. Neutropenic precautions: The patient will receive Neulasta prior to being discharged. We will continue to monitor for any fevers greater than 100.5. Continue to monitor CBCs daily. 5. Supportive care: Patient will get out of bed as much as possible. Patient to continue exercises as instructed while in the hospital. The patient will also continue his home protein shakes 3 times a day. Plan of care discussed with Dr. Sandoval. Dictated by VINNIE Traylor for Danis Sandoval MD Patient seen and examined. As above. Proceed with second cycle of chemotherapy. Monitor for infusional reactions and side effects. Danis Sandoval M.D. cc: VINNIE Traylor MD [facility]
[2018-12-28] MEDS: PRILOSEC PO SCH (09:59)
--- NOTE | 2018-12-28 12:34 | PROGRESS NOTE ---
DATE: 12/28/2018 SUBJECTIVE: Patient reports yesterday she was feeling a little bit itchy and sensation of feeling hot after he received 1st dose of chemotherapy, but now he is feeling okay. No other complaints noted. OBJECTIVE: Vital Signs: Temperature 97.8, heart rate 81,respiratory rate 18, blood pressure 128/76. O2 saturation 99% on room air. General: This is a chronically ill-appearing 38-year- old male, lying in bed. No acute distress. Cardiovascular: S1, S2 heard. No murmurs, gallops, or rubs. Regular rate and rhythm. Respiratory: Clear bilaterally to auscultation. No work of breathing or using accessory muscles. Abdomen: Soft, nontender to palpation. Bowel sounds present. No organomegaly. Genitourinary: Patient has a 5 to 6 cm mass noted in the right inguinal area. Mildly tender to palpation. Extremities: No clubbing, cyanosis, or edema. Peripheral pulses present in both legs. Neurological: Patient alert and oriented x3. Moves 4 extremities. LABORATORY DATA: Reviewed. ASSESSMENT AND PLAN: Squamous cell carcinoma of the penis with right inguinal lymph node involvement. Patient was a direct admission from Dr. Sandoval to provide chemotherapy for this patient. We were called for admission for medical management. At this point, patient is doing okay so will continue with current treatment outlined by Dr. Sandoval. He is receiving medication for nausea and vomiting and pain. He has hematuria that is most likely secondary to chemotherapy so he is being given Mesna. We will continue to monitor this patient closely. He is receiving also Neulasta for neutropenia precautions. We will continue to monitor this patient closely. cc: Ruben Zepeda MD
[2018-12-28] MEDS ORDERED: ZOFRAN 16 MG in NS 100 ML IV ONE (22:00)
[2018-12-28] MEDS ORDERED: MANNITOL IV ONE (23:00)
[2018-12-28] MEDS ORDERED: [UNRECOGNIZED DRUG - OTHER] IV ONE (23:00)
[2018-12-28] MEDS ORDERED: NS IV ONE ×5 (23:00)
[2018-12-29] MEDS ORDERED: MESNA IV ONE ×2
[2018-12-29] MEDS ORDERED: [UNRECOGNIZED DRUG - OTHER] IV ONE ×2
[2018-12-29] MEDS: NS 1,000 ML IV ONE ×2 (00:39→23:17)
[2018-12-29] MEDS ORDERED: NS 1,000 ML IV SCH (01:00)
[2018-12-29] MEDS: NORCO-7.5 PO PRN ×3 (03:47→22:53)
[2018-12-29 07:21] LABS: HEMATOCRIT 32.2 % (42.0-52.0); HEMOGLOBIN 10.3 g/dL (14.0-18.0); IMM GRAN# 0.04 X1000 (0.0-0.04); IMM GRAN% 0.3 % (0.0-0.5); LYMPH# 1.46 X1000 (1.2-3.4); MCH 27.3 PG (27-31); MCV 85.4 FL (81-99); MONO# 0.61 X1000 (0.11-0.59); MONO% 4.6 % (1.7-9.3); MPV 9.5 FL (7.4-10.4); NEUT# 11.16 X1000 (1.4-6.5); NEUT% 84.1 % (42.2-75.2); PLT 352 X1000 (130-400); RBC 3.77 XMIL (4.7-6.1); RDW 13.1 % (11.5-14.5); WBC 13.27 X1000 (4.8-10.8)
[2018-12-29 07:58] LABS: AGAP 10; ALB/GLOB RATIO 0.9; ALBUMIN 3.2 g/dL (3.5-5.0); ALKALINE PHOSPHATASE 77 U/L (32-122); BUN 7 mg/dL (8-22); CALCIUM 8.8 mg/dL (8.8-10.2); CHLORIDE 105 mmol/L (98-107); COSMO 276; CREATININE 0.5 mg/dL (0.7-1.2); ESTIMATED GFR > 60; GLUCOSE 114 mg/dL (70-104); GOT 23 U/L (10-34); GPT 49 U/L (10-44); POTASSIUM 3.4 mmol/L (3.5-5.1); SODIUM 139 mmol/L (136-145); TCO2 24 mmol/L (25-35); TOTAL BILIRUBIN 0.15 mg/dL (0.20-1.00); TOTAL PROTEIN 6.8 g/dL (6.3-8.3)
[2018-12-29] MEDS: PRILOSEC PO SCH (09:19)
--- NOTE | 2018-12-29 10:32 | PROGRESS NOTE ---
DATE: 12/29/2018 SUBJECTIVE: Patient reports feeling fine. Apparently because this patient's 1st day his chemotherapy was not completely well tolerated and they stopped it. I think they are going to plan to keep him one more day here in the hospital to complete the 3rd chemotherapy cycle. No other issues noted as per nursing staff overnight. OBJECTIVE: Vital Signs: Temperature 97.7 degrees, heart rate 90s, respiratory rate 18, blood pressure 102/67, O2 saturation 100% on room air. General: This is a chronically ill-looking, 38- year-old male, lying in bed, in no acute distress. Cardiovascular: S1, S2 heard. No murmurs, gallops, or rubs. Regular rate and rhythm. Respiratory: Clear bilaterally to auscultation. No work of breathing or using accessory muscles. Abdomen: Soft, nontender to palpation. Bowel sounds present. No organomegaly. Genitourinary: Patient has a 6 cm mass noted in the right inguinal area. Definitely less drainage coming out and is mildly tender to palpation as well. Extremities: No clubbing, cyanosis, or edema. Peripheral pulses present in both legs. Neurological: Patient alert and oriented x3. Moves all 4 extremities. LABORATORY DATA: Reviewed. ASSESSMENT AND PLAN: Squamous cell carcinoma of the penis with right inguinal lymph node involvement. At this time, patient is receiving chemotherapy directed per Dr. Sandoval. His labs are fine. We are checking CBC and BMP daily. Patient is also receiving Mesna for prevention of hematuria secondary to chemotherapy and also prevention of neutropenia as well with Neulasta. The patient is doing fine. At this time, we will continue keeping him in the hospital while he receives chemotherapy. We will continue to monitor this patient closely. cc: Ruben Zepeda MD [facility]
[2018-12-29] MEDS ORDERED: INJECTAFER 750 MG in NS 250 ML IV ONE (12:00)
--- NOTE | 2018-12-29 13:55 | HEMO/ONC PROGRESS NOTE ---
DATE: 12/29/2018 SUBJECTIVE: Patient feeling well at this time. Patient denies any new complaints. OBJECTIVE: Vital Signs: Temperature 97.7 degrees, heart rate 90, respiratory rate 18, blood pressure 102/67, saturating 100% on room air. General: Patient is awake, lying in bed, no acute distress noted. HEENT: Anicteric. Pupils PERRLA. Mucous membranes moist. Cardiovascular: S1, S2, regular rate and rhythm. Chest: Bilateral breath sounds clear to auscultation. Cardiovascular: S1, S2. Regular rate and rhythm. Abdomen: Soft, nontender. Bowel sounds present in all 4 quadrants. Neurologic: Alert and oriented x3. No focal deficits noted. LABORATORY DATA: White count 13.27, hemoglobin 10.3, hematocrit 32.2, platelets are 352. Potassium 3.4, BUN 7, creatinine 0.5. ASSESSMENT AND PLAN: 1. Squamous cell carcinoma of the penis with right inguinal lymph node involvement: The patient had a small reaction on the first night of his chemotherapy. The patient otherwise since then has been tolerating his chemotherapy well. We will continue to monitor very closely for any further side effects. 2. Antinausea prophylaxis: Patient will continue to recieve Zofran and Decadron prior to treatments. Patient also has p.r.n. medications ordered as needed. We will continue to monitor very closely. 3. Cystitis prophylaxis: Continue to monitor for any hematuria. Patient will continue to receive his mesna over the next couple days. We will continue to monitor. 4.Neutropenia precautions: Continue to monitor for any fevers greater than 100.5. The patient will receive Neulasta prior to go home. We will continue to monitor closely. 5. Iron deficiency anemia: Patient will receive 1 dose of IV iron while he is in the hospital. We will continue to monitor hemoglobin and hematocrit closely. Plan was discussed with Dr. Sandoval. Dictated by VINNIE Traylor for Danis Sandoval MD cc: VINNIE Traylor MD [facility]
[2018-12-29] MEDS: NS 1,000 ML IV SCH (15:59)
[2018-12-29] MEDS ORDERED: ZOFRAN 16 MG in NS 100 ML IV ONE (22:00)
[2018-12-29] MEDS ORDERED: NS IV ONE ×5 (23:00)
[2018-12-29] MEDS ORDERED: [UNRECOGNIZED DRUG - OTHER] IV ONE (23:00)
[2018-12-29] MEDS ORDERED: MANNITOL IV ONE (23:00)
[2018-12-30] MEDS ORDERED: NS IV ONE ×4
[2018-12-30] MEDS ORDERED: MESNA IV ONE ×2
[2018-12-30] MEDS ORDERED: [UNRECOGNIZED DRUG - OTHER] IV ONE ×2
[2018-12-30] MEDS: NS 1,000 ML IV SCH ×2 (06:39→20:48)
[2018-12-30 07:03] LABS: BASO# 0.03 X1000 (0.0-0.2); BASO% 0.2 % (0.0-0.8); EOS# 0.14 X1000 (0.0-0.7); EOS% 1.1 % (0.0-10.0); HEMATOCRIT 32.7 % (42.0-52.0); HEMOGLOBIN 10.6 g/dL (14.0-18.0); IMM GRAN# 0.02 X1000 (0.0-0.04); IMM GRAN% 0.2 % (0.0-0.5); LYMPH# 1.37 X1000 (1.2-3.4); LYMPH% 10.6 % (20.5-51.1); MCH 27.6 PG (27-31); MCHC 32.4 g/dL (33-37); MCV 85.2 FL (81-99); MONO# 0.26 X1000 (0.11-0.59); MPV 9.5 FL (7.4-10.4); NEUT# 11.12 X1000 (1.4-6.5); NEUT% 85.9 % (42.2-75.2); PLT 314 X1000 (130-400); RBC 3.84 XMIL (4.7-6.1); WBC 12.94 X1000 (4.8-10.8)
[2018-12-30 07:14] LABS: AGAP 11; ALBUMIN 3.4 g/dL (3.5-5.0); ALKALINE PHOSPHATASE 77 U/L (32-122); BUN 6 mg/dL (8-22); CALCIUM 9.1 mg/dL (8.8-10.2); CHLORIDE 100 mmol/L (98-107); COSMO 275; CREATININE 0.5 mg/dL (0.7-1.2); ESTIMATED GFR > 60; GLUCOSE 103 mg/dL (70-104); GOT 16 U/L (10-34); GPT 39 U/L (10-44); POTASSIUM 3.4 mmol/L (3.5-5.1); SODIUM 139 mmol/L (136-145); TCO2 28 mmol/L (25-35); TOTAL BILIRUBIN 0.32 mg/dL (0.20-1.00); TOTAL PROTEIN 6.8 g/dL (6.3-8.3)
--- NOTE | 2018-12-30 09:11 | HEMO/ONC PROGRESS NOTE ---
DATE: 12/30/2018 SUBJECTIVE: The patient denies any complaints at this time. The patient tolerating chemotherapy well. OBJECTIVE: Vital Signs: Temperature 99.3 degrees, heart rate 94, respiratory rate 18, blood pressure 131/79, sat 99% on room air. General: The patient is awake, lying in bed. No acute distress noted. HEENT: Anicteric. Pupils PERRLA. Mucous membranes moist. Cardiovascular: S1, S2. Regular rate and rhythm. Chest: Bilateral breath sounds clear to auscultation. Abdomen: Soft, nontender. Bowel sounds present in all 4 quadrants. Neurologic: Alert and oriented x3. No focal deficits noted. LABORATORY DATA: White blood cell count 12.94, hemoglobin 10.6, hematocrit 32.7, platelets are 314. Potassium 3.4, BUN 6, creatinine 0.5. ASSESSMENT AND PLAN: 1. Squamous cell carcinoma of the penis with right inguinal lymph node involvement: The patient has not had any more reactions to chemotherapy. The patient tolerating it well at this time. Continue to monitor closely for any other side effects or reactions. 2. Antinausea prophylaxis: The patient continue to use his Zofran prior to treatment. The patient has p.r.n. medications ordered as needed for any nausea. Nausea has been very well controlled. 3. Cystitis prophylaxis: Continue to monitor for any hematuria. No signs of any yet. Continue to monitor closely. 4. Neutropenia precautions: Continue to monitor CBCs. The patient will receive Neulasta prior to going home. We will continue to monitor closely. 5. Anemia: The patient to receive 1 unit of Injectafer while in the hospital. The patient's hemoglobin and hematocrit have slightly improved. Hemoglobin today is 10.6, hematocrit 30.7. Continue to monitor closely. Dictated by VINNIE Traylor for Danis Sandoval MD Patient seen and examined. As above. Danis Sandoval M.D. cc: VINNIE Traylor MD [facility]
[2018-12-30] MEDS: PRILOSEC PO SCH (09:26)
--- NOTE | 2018-12-30 10:08 | PROGRESS NOTE ---
DATE: 12/30/2018 SUBJECTIVE: Patient reports feeling better. He is tolerating chemotherapy well. No issues noted as per nursing staff overnight or by the patient. OBJECTIVE: Vital Signs: Temperature 99.3 degrees, heart rate 94, respiratory rate 18, blood pressure 131/79, O2 saturation 99% on room air General: This is a 38-year-old male, lying in bed, in no acute distress. Cardiovascular: S1, S2 heard. No murmurs, gallops, or rubs. Regular rate and rhythm. Respiratory: Clear bilaterally to auscultation. No work of breathing or using accessory muscles. Abdomen: Soft, nontender to palpation. Bowel sounds present. No organomegaly. Extremities: No clubbing, cyanosis, or edema. Peripheral pulses present in both legs. There 6 cm mass noted in the right inguinal area with less drainage. Neurological: Patient alert oriented x3. Moves 4 extremities. LABORATORY DATA: Reviewed. ASSESSMENT/PLAN: Squamous cell carcinoma of the penis with right inguinal lymph node involvement. The patient continues to receive chemotherapy as per Dr. Sandoval. RECOMMENDATIONS: The patient is doing fine. Patient is on neutropenic precautions with Neulasta and also Mesna for hemorrhagic cystitis. We will continue to monitor this patient closely. He is supposed to finish therapy tomorrow morning then unless hematology is planning to do something different he is going to be discharged tomorrow. cc: Ruben Zepeda MD
[2018-12-30] MEDS ORDERED: DAKIN'S 0.25% SOLN TOP SCH (14:45)
[2018-12-30] MEDS: NORCO-7.5 PO PRN (18:48)
[2018-12-30] MEDS ORDERED: NEULASTA SUBQ ONE (20:00)
[2018-12-31 05:04] VITALS: BP 125/82
[2018-12-31 07:45] LABS: AGAP 11; ALB/GLOB RATIO 0.9; ALBUMIN 3.4 g/dL (3.5-5.0); ALKALINE PHOSPHATASE 81 U/L (32-122); BUN 9 mg/dL (8-22); CALCIUM 9.3 mg/dL (8.8-10.2); CHLORIDE 98 mmol/L (98-107); COSMO 269; CREATININE 0.5 mg/dL (0.7-1.2); ESTIMATED GFR > 60; GLUCOSE 108 mg/dL (70-104); GOT 14 U/L (10-34); GPT 30 U/L (10-44); POTASSIUM 3.6 mmol/L (3.5-5.1); SODIUM 135 mmol/L (136-145); TCO2 26 mmol/L (25-35); TOTAL BILIRUBIN 0.56 mg/dL (0.20-1.00); TOTAL PROTEIN 7.2 g/dL (6.3-8.3)
[2018-12-31 07:52] LABS: BASO# 0.02 X1000 (0.0-0.2); BASO% 0.2 % (0.0-0.8); EOS% 2.4 % (0.0-10.0); HEMATOCRIT 33.9 % (42.0-52.0); HEMOGLOBIN 10.9 g/dL (14.0-18.0); IMM GRAN# 0.02 X1000 (0.0-0.04); IMM GRAN% 0.2 % (0.0-0.5); LYMPH# 1.06 X1000 (1.2-3.4); LYMPH% 8.4 % (20.5-51.1); MCH 27.3 PG (27-31); MCHC 32.2 g/dL (33-37); MONO# 0.16 X1000 (0.11-0.59); MONO% 1.3 % (1.7-9.3); MPV 9.8 FL (7.4-10.4); NEUT# 11.07 X1000 (1.4-6.5); NEUT% 87.5 % (42.2-75.2); PLT 311 X1000 (130-400); RBC 3.99 XMIL (4.7-6.1); WBC 12.63 X1000 (4.8-10.8)
[2018-12-31 08:03] LABS: EOS 2 % (1-10); LYMPHS 2 % (21-51); MONO 4 % (1-9); SEGS 92 % (42-75)
[2018-12-31] MEDS: PRILOSEC PO SCH (09:05)
[2018-12-31] MEDS: NORCO-7.5 PO PRN (09:05)
[2018-12-31] MEDS ORDERED: NEULASTA SUBQ ONE (11:00)
--- NOTE | 2018-12-31 15:14 | DISCHARGE SUMMARY ---
ADMISSION DATE: 12/27/2018 DISCHARGE DATE: 12/31/2018 ADMISSION DIAGNOSIS: 1. 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 2. Admission was for chemotherapy and medical management by our team. DISCHARGE DIAGNOSIS: 1. 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 2. Chemotherapy treatment. 3. Leukocytosis. Had received Neulasta and also Mesna for hemorrhagic cystitis as well. 4. Prophylaxis for hemorrhagic cystitis on Mesna. There were no issues of bleeding. 5. Anemia. Received 1 unit of Injectafer while in the hospital. CONSULTATIONS: Danis Sandoval MD. PROCEDURES OR SURGERIES: None. HOSPITAL COURSE: The patient was admitted from Dr. Sandoval's office on 12/27/2018 for chemotherapy treatment due to penile squamous cell carcinoma with right inguinal lymphadenopathy. We essentially just monitored from the side. Most everything was performed and monitored by Dr. Sandoval and team. Apparently, they decided to do IV fluids, Platinol 50 mg as well they are going to manage the pain medications too. He was on antinausea prophylaxis, which included Zofran and Decadron, was on cystitis prophylaxis Mesna for 3 days. Neutropenic precautions and was going to get Neulasta prior to discharge. He was given 3 protein shakes a day, and for his chemotherapy he had a 3 treatment for that, which included cisplatin, mannitol, ifosfamide chemotherapy. Apparently, he had no complications throughout his stay. His white blood cell count did get up a little bit. Neutrophil count was also elevated but there was mention of giving him Neulasta as well. The highest his temperature ever got was 99.4, that was yesterday around 11. He has been ranging 99 temperature but the rest of his vital signs are completely stable. He apparently had a right groin wound from cancerous growth, Wound Care saw him for that. The areas were raised with some serous fluid, mild odor, so Dakin's 0.25 strength and a wet-to-dry dressing daily and as needed for soiling and this is a low cost for home, and he was a [place]ian- speaking male. He had Dr. Chacon as his physician and was able to receive adequate interpretation of his medical care needs. DISCHARGE VITAL SIGNS: Temperature 99.1, heart rate 86, respiratory rate 14, blood pressure 125/82, O2 saturation 97%. LAB DATA: White blood cells 12,000, hemoglobin 10, hematocrit 33, platelet count 311. Sodium 135, potassium 3.6, BUN 9, creatinine 0.5, glucose 108, albumin 3.4. PERTINENT IMAGING: There was no imaging performed. FOLLOWUP: Dr. Sandoval. DIET: Regular. ACTIVITY: As tolerated. DISCHARGE MEDICATIONS: 1. Ultram 50 mg p.o. every 4-6 hours p.r.n. 2. Omeprazole 20 mg p.o. daily. 3. Reglan 10 mg p.o. every 6 hours p.r.n. 4. Zyrtec 10 mg p.o. daily. DISCHARGE INSTRUCTIONS: For right groin wound care, Wound Care nurse recommended treatment with 0.25 strength Dakin's and a wet-to-dry daily dressing and p.r.n. soiling. The cost of this at home should be fairly low. If there are any signs or symptoms of infection especially in the groin to please call Dr. Sandoval or seek medical advice if unable to reach them. DISCHARGE DISPOSITION: Home. Also please give instructions to the patient in Tun[place]ian. Dictated by VINNIE Payne for Ruben Zepeda MD Addendum: Patient seen and examined by myself. Agree with VINNIE note. It reflects my assessment and plan. Patient is being discharged in stable condition. Will be seen by oncologist in two weeks. cc: VINNIE Payne MD [facility]
== END 2018-12-31 12:28 | disposition home or self-care (01) | DRG 847 ==
LOC: SUATTDRO 14:06 → DIRADM 14:06 → 3N 16:19
PROVIDERS: ATTEND Internal Medicine
CPT/HCPCS: 80053; 85025; A9270; J1200; J1439; J1453; J2150; J2405; J2505; J2930; J7030; J7040; J7050; J9060; J9208; J9209; J9265; J9267; S0028

== ENCOUNTER 2019-01-31 09:39 | Inpatient (IN) ==
[2019-01-31] MEDS ORDERED: NS 1,000 ML IV ONE (11:08)
[2019-01-31] MEDS ORDERED: ZOSYN 3.375 GM in NS 50 ML IV ONE (11:08)
[2019-01-31 11:40] LABS: BASO# 0.02 X1000 (0.0-0.2); BASO% 0.4 % (0.0-0.8); EOS# 0.08 X1000 (0.0-0.7); EOS% 1.5 % (0.0-10.0); HEMATOCRIT 30.3 % (42.0-52.0); HEMOGLOBIN 9.8 g/dL (14.0-18.0); IMM GRAN# 0.04 X1000 (0.0-0.04); IMM GRAN% 0.8 % (0.0-0.5); LYMPH# 0.59 X1000 (1.2-3.4); LYMPH% 11.1 % (20.5-51.1); MCH 26.9 PG (27-31); MCHC 32.3 g/dL (33-37); MCV 83.2 FL (81-99); MONO# 0.85 X1000 (0.11-0.59); MONO% 15.9 % (1.7-9.3); MPV 9.5 FL (7.4-10.4); NEUT# 3.75 X1000 (1.4-6.5); NEUT% 70.3 % (42.2-75.2); PLT 353 X1000 (130-400); RBC 3.64 XMIL (4.7-6.1); RDW 15.2 % (11.5-14.5); WBC 5.33 X1000 (4.8-10.8)
[2019-01-31 12:03] LABS: AGAP 15; ALB/GLOB RATIO 0.9; ALBUMIN 3.5 g/dL (3.5-5.0); ALKALINE PHOSPHATASE 102 U/L (32-122); BUN 9 mg/dL (8-22); CALCIUM 9.4 mg/dL (8.8-10.2); CHLORIDE 95 mmol/L (98-107); COSMO 269; CREATININE 0.5 mg/dL (0.7-1.2); ESTIMATED GFR > 60; GLUCOSE 144 mg/dL (70-104); GOT 33 U/L (10-34); GPT 87 U/L (10-44); POTASSIUM 3.8 mmol/L (3.5-5.1); SODIUM 134 mmol/L (136-145); TCO2 24 mmol/L (25-35); TOTAL BILIRUBIN 0.44 mg/dL (0.20-1.00); TOTAL PROTEIN 7.3 g/dL (6.3-8.3)
[2019-01-31] MEDS ORDERED: MORPHINE IV ONE (12:12)
[2019-01-31] MEDS ORDERED: ZOFRAN IV ONE (12:12)
[2019-01-31 12:34] LABS: URINE SOURCE CLEAN CATCH
[2019-01-31 12:55] LABS: BILIRUBIN URINE NEGATIVE (NEGATIVE); BLOOD URINE NEGATIVE (NEGATIVE); COLOR YELLOW; GLUCOSE URINE NEGATIVE (NEGATIVE); KETONE URINE 20 mg/dL (NEGATIVE); LEUKOCYTES URINE NEGATIVE (NEGATIVE); NITRITE URINE NEGATIVE (NEGATIVE); PROTEIN URINE 30 mg/dL (NEGATIVE); TURBIDITY URINE CLEAR (CLEAR); UROBILINOGEN URINE 2 mg/dL (NORMAL)
[2019-01-31 12:56] LABS: UR EPITHELIAL CELLS <10 /HPF (<10); URINE BACTERIA NEGATIVE /HPF; URINE RBC <10 /HPF (<10); URINE WBC <10 /HPF (<10)
--- NOTE | 2019-01-31 13:19 | PROVIDER DOCUMENTATION ---
HPI-Rash/Wound/ReCheck - General Chief Complaint: Sores/Lesions Stated Complaint: INFECTION/GROIN AREA Time Seen by Provider: 01/31/19 10:38 Source: patient Allergies/Adverse Reactions: Allergies Allergy/AdvReac Type Severity Reaction Status Date / Time No Known Allergies Allergy Verified 03/08/17 20:13 Home Medications: Home Medication List Medication Instructions Recorded Confirmed Last Taken Type Tramadol [Ultram] 50 mg PO Q4-6H PRN PRN #40 tab 12/31/18 01/17/19 Unknown Rx - History of Present Illness-Dermatology Nature of Presenting Problem: Patient is a 38 yowm who was sent by Dr. Sandoval due to wound to right groin region with malodorous exudate x 3-4 days. Patient currently on chemotherapy due to hx of penile cancer with metastasis to lymph nodes. He was seen by Dr. Sandoval this morning in the office. Pt denies fever or any other symptoms. Review of Systems - Adult - REVIEW OF SYSTEMS - ADULT Constitutional: reports: no symptoms reported. denies: fever Eyes: reports: no symptoms reported Ears, Nose, Mouth & Throat: reports: no symptoms reported Cardiovascular: reports: no symptoms reported Respiratory: reports: no symptoms reported Gastrointestinal: reports: no symptoms reported Genitourinary: reports: no symptoms reported Musculoskeletal: reports: no symptoms reported Integumentary: reports: see HPI, other (wound right groin) Neurological: reports: no symptoms reported Psychiatric: reports: no symptoms reported Endocrine: reports: no symptoms reported Hematologic/Lymphatic: reports: no symptoms reported Allergic/Immunologic: reports: no symptoms reported All Other Systems: Reviewed and Negative Past History - Adult - PAST MEDICAL HISTORY-ADULT Review of Records: reports: Old Records Reviewed, Nursing Assessment Review, Medications Reviewed, Social history reviewed & non-contributory. Major Childhood Illnesses: reports: denies history Cardiovascular: reports: denies history Respiratory: reports: denies history Gastrointestinal: reports: denies history Obstetrical/Gynecological: reports: denies history Genitourinary: reports: cancer Musculoskeletal: reports: denies history Neurological: reports: denies history Psychiatric: reports: denies history Endocrine/Immune: reports: denies history Other Conditions: reports: denies history - PRIOR SURGERIES/PROCEDURES Surgical/Procedure History: reports: reviewed, not pertinent - IMMUNIZATION STATUS Childhood Immunizations: See Nurse Assessment Flu Vaccine: See Nurse Assessment - FAMILY HISTORY Family History: reviewed, not pertinent - SOCIAL HISTORY Smoking: non-smoker Physical Exam-General - PHYSICAL EXAM-ADULT Initial Vital Signs Reviewed: Yes - CONSTITUTIONAL General Appearance: alert, no apparent distress. negative: lethargic, slow to respond - EYES Eyes: PERRL/EOMI, pink conjunctivae - HEAD, EARS, NOSE, MOUTH & THROAT HENMT: normocephalic/atraumatic, moist mucous membranes - NECK Neck: non-tender, full range of motion, supple, normal inspection - RESPIRATORY Respiratory: chest non-tender, lungs clear, normal breath sounds, no pleuratic chest pain, no respiratory distress, no accessory muscle use - CARDIOVASCULAR Cardiovascular: normal peripheral pulses, regular rate, rhythm, no gallop, no murmur - GASTROINTESTINAL (ABDOMEN) Abdominal Exam: normal bowel sounds, non tender, soft, no organomegaly, no pulsatile mass - MUSCULOSKELETAL Back Exam: normal inspection Extremity: normal range of motion, normal inspection, other (Right groin region tender). negative: slow capillary refill - SKIN Integumentary: normal color, warm/dry, other (2 open wounds measuring approximately the size of a nickel noted to right groin area. Yellow/clear malodorous exudate and surrounding erythema also noted.). negative: cyanosis, diaphoresis, jaundice, mottled, pallor - NEUROLOGIC Neurologic: grossly normal, no motor/sensory deficits - PSYCHIATRIC Psych/Mental Status: normal mood/affect, normal thought content, normal thought process, oriented x 3 Progress - PLAN OF CARE/RESULTS Progress/Plan/Lab Results: Vital Signs - 8 hr 01/31/19 09:42 01/31/19 09:45 01/31/19 10:42 Temperature 99.1 F Pulse Rate 110 H Respiratory Rate 16 8 L Blood Pressure 105/77 O2 Sat by Pulse Oximetry 96 01/31/19 10:50 01/31/19 11:00 01/31/19 11:10 Temperature Pulse Rate 87 96 H Respiratory Rate 18 13 Blood Pressure O2 Sat by Pulse Oximetry 95 97 96 01/31/19 11:20 01/31/19 11:30 01/31/19 11:33 Temperature Pulse Rate 86 Respiratory Rate 19 Blood Pressure 110/66 O2 Sat by Pulse Oximetry 96 97 98 01/31/19 11:40 01/31/19 11:50 01/31/19 12:00 Temperature Pulse Rate Respiratory Rate Blood Pressure O2 Sat by Pulse Oximetry 97 97 97 01/31/19 12:02 01/31/19 12:10 01/31/19 12:20 Temperature Pulse Rate Respiratory Rate Blood Pressure 113/81 O2 Sat by Pulse Oximetry 97 95 98 01/31/19 12:30 01/31/19 12:33 01/31/19 12:40 Temperature Pulse Rate Respiratory Rate Blood Pressure 138/105 O2 Sat by Pulse Oximetry 98 98 97 01/31/19 12:50 01/31/19 13:00 01/31/19 13:02 Temperature 98.9 F Pulse Rate 92 H Respiratory Rate 16 Blood Pressure 120/77 O2 Sat by Pulse Oximetry 96 96 94 L 01/31/19 13:10 01/31/19 13:20 Temperature Pulse Rate Respiratory Rate Blood Pressure O2 Sat by Pulse Oximetry 95 97 01/31/19 11:57 Gram Stain - Final Groin Laboratory Results - last 24 hr 01/31/19 01/31/19 01/31/19 10:36 10:36 10:36 WBC 5.33 RBC 3.64 L Hgb 9.8 L Hct 30.3 L MCV 83.2 MCH 26.9 L MCHC 32.3 L RDW Std Deviation 15.2 H Plt Count 353 MPV 9.5 Immature Gran % (Auto) 0.8 H Neut % (Auto) 70.3 Lymph % (Auto) 11.1 L [place] % (Auto) 15.9 H Eos % (Auto) 1.5 Baso % (Auto) 0.4 Immature Gran # (Auto) 0.04 Neut # (Auto) 3.75 Lymph # (Auto) 0.59 L [place] # (Auto) 0.85 H Eos # (Auto) 0.08 Baso # (Auto) 0.02 Sodium 134 L Potassium 3.8 Chloride 95 L Carbon Dioxide 24 L Anion Gap 15 BUN 9 Creatinine 0.5 L Estimated GFR/1.73 m2 > 60 BUN/Creatinine Ratio 18 Glucose 144 H Calculated Osmolality 269 Calcium 9.4 Total Bilirubin 0.44 AST 33 ALT 87 H Alkaline Phosphatase 102 Total Protein 7.3 Albumin 3.5 Globulin 3.8 Albumin/Globulin Ratio 0.9 Plasma Lactate 1.0 Urine Source Urine Color Urine Turbidity Urine pH Ur Specific [place] Urine Protein Ur Glucose (Stick) Ur Ketones (Stick) Urine Blood Urine Nitrite Urine Bilirubin Urobilinogen Dipstick Urine Leukocytes Urine WBC (Auto) Urine RBC (Auto) U Epithel Cells (Auto) Urine Bacteria (Auto) 01/31/19 12:27 WBC RBC Hgb Hct MCV MCH MCHC RDW Std Deviation Plt Count MPV Immature Gran % (Auto) Neut % (Auto) Lymph % (Auto) [place] % (Auto) Eos % (Auto) Baso % (Auto) Immature Gran # (Auto) Neut # (Auto) Lymph # (Auto) [place] # (Auto) Eos # (Auto) Baso # (Auto) Sodium Potassium Chloride Carbon Dioxide Anion Gap BUN Creatinine Estimated GFR/1.73 m2 BUN/Creatinine Ratio Glucose Calculated Osmolality Calcium Total Bilirubin AST ALT Alkaline Phosphatase Total Protein Albumin Globulin Albumin/Globulin Ratio Plasma Lactate Urine Source CLEAN CATCH Urine Color YELLOW Urine Turbidity CLEAR Urine pH 6.0 Ur Specific [place] 1.020 Urine Protein 30 A Ur Glucose (Stick) NEGATIVE Ur Ketones (Stick) 20 A Urine Blood NEGATIVE Urine Nitrite NEGATIVE Urine Bilirubin NEGATIVE Urobilinogen Dipstick 2 A Urine Leukocytes NEGATIVE Urine WBC (Auto) <10 Urine RBC (Auto) <10 U Epithel Cells (Auto) <10 Urine Bacteria (Auto) NEGATIVE Orders Category Date Time Status Admit - [facility] Routine AdmDCTranf 01/31/19 14:01 Active Activity - Up with Assistance ORDERED Care 01/31/19 14:01 Active Apply Mechanical Device [QM] ORDERED Care 01/31/19 14:01 Active Intake and Output-Strict ORDERED Care 01/31/19 14:01 Active Nursing- MD Consult Request ROUTINE Care 01/31/19 14:04 Active Repeat Vital Signs .Temp Care 01/31/19 13:19 Active Vital Signs Order Q 8-HR ASSESS Care 01/31/19 14:01 Active Physician/Provider Consults Routine Cons 01/31/19 14:01 Ordered BLOOD CULTURE [BLDCUL] Stat Lab 01/31/19 11:39 Results CBC WITH DIFF [HEME] Routine Lab 02/01/19 06:00 Uncollected CBC WITH DIFF [HEME] Stat Lab 01/31/19 10:36 Completed COMPREHENSIVE METABOLIC PANEL [CHEM] Routine Lab 02/01/19 06:00 Uncollected COMPREHENSIVE METABOLIC PANEL [CHEM] Stat Lab 01/31/19 10:36 Completed LACTATE, PLASMA [CHEM] Stat Lab 01/31/19 10:36 Completed UA NIMS W/REFLEX CULT [URINALYSIS] Stat Lab 01/31/19 12:27 Completed WOUND CULTURE INC GRAM STAIN [RM] Routine Lab 01/31/19 11:57 Results 0.9% Sodium Chloride Inj [Ns] 1,000 ml Med 01/31/19 11:08 Discontinued IV 100 mls/hr 0.9% Sodium Chloride Inj [Ns] 1,000 ml Med 01/31/19 14:15 Active IV 100 mls/hr Morphine Med 01/31/19 12:12 Discontinued 4 mg IV NOW ONE Ondansetron [Zofran] Med 01/31/19 12:12 Discontinued 4 mg IV NOW ONE Ondansetron [Zofran] Med 01/31/19 14:01 Active 4 mg IV Q4H PRN PRN Piperacillin/Tazobactam [Zosyn] 3.375 gm Med 01/31/19 11:08 Discontinued 0.9% Sodium Chloride Inj [Ns] 50 ml IV NOW Transfer/Admit Order [TRANSFER] Routine Transfer 01/31/19 14:05 Ordered 1325- Admitting [facility]PS paged. Language line optical fabricator utilized. Kerri, admitting [facility] aware that Dr. Sandoval requested that Dr. Carrasco is consulted. Dr. Carrasco is patient's urologist. Result Diagrams: 01/31/19 10:36 01/31/19 10:36 - CONSULTS/PCP/HOSPITALIST Notification #1 *Consult/PCP/Hospitalist*: Dr. Sandoval Time Discussed: 13:15 Reason/Comments: wound infection, hx of penile cancer, on chemotherapy Consult Disposition: Admit (Md requests I admit pt to [facility].) #2 Consult: LAURENT Manning TEST DIRECTOR Time Discussed: 14:00 Reason/Comments: cellulitis Consult Disposition: Admit Departure - Departure Date of Disposition Decision: 01/31/19 Time of Disposition Decision: 13:25 DIAGNOSIS: Wound infection, Penile cancer Cellulitis Qualifiers: Site of cellulitis: unspecified site Qualified Code(s): L03.90 - Cellulitis, unspecified Disposition: ADMITTED INPATIENT 09 Certified Medical Emergency: Emergent Condition: Stable - Critical Care Note This patient required my direct & personal management of CC.: No Attestation - Physician/ POPPY Attestation Patient care was provided by Advanced Practice Provider:: Yes Advanced Practice Provider:: Zunilda Stephens Advanced Practice Provider documentation review:: The Mid-level provider docum entation, treatment plan and medical decision making was reviewed by the physician who agrees with all treatment and medical decision making by the MLP. The physician spent face to face time with patient:: No Advanced Practice Provider documentation review:: Supervising physician onsite and consulted in the evaluation and care of this patient. The physician did not have a face to face encounter with the patient.
[2019-01-31] MEDS ORDERED: ZOFRAN IV PRN (14:01)
[2019-01-31] MEDS: NS 1,000 ML IV SCH (15:06)
[2019-01-31] MEDS ORDERED: VANCOMYCIN IV PER PHARMACY MISC SCH (15:15)
--- NOTE | 2019-01-31 15:56 | HISTORY AND PHYSICAL ---
ONCOLOGIST: Dr. Danis Sandoval. UROLOGIST: Dr. Hdez. CHIEF COMPLAINT: Infection and sore to his right groin. HISTORY OF PRESENT ILLNESS: This is a 38-year-old gentleman with a history of penile cancer with lymph node metastasis diagnosed with penile squamous cell carcinoma, s/p lymph node biopsy per Dr Oropeza with pathology returning moderately differentiated squamous cell carcinoma with lymphovascular invasion. He then underwent a partial penectomy in mid November with T3 disease. He presents to the emergency room complaining of clear drainage from the prior lymph node biopsy site that started 4 days prior. Within the past 24 hours, he developed soreness and pain, the area opened and he developed a continuous ooze of malodorous drainage. He denied any fevers or chills. Mr Estrada has completed 3 rounds of chemotherapy from Dr. Sandoval, most recently from 01/17/2019 to 01/20/2019. 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 PAST SURGICAL HISTORY: Right index finger amputation, partial penectomy with creation of a new urethra and lymph node biopsy by Dr. Hdez and Dr. Oropeza, and port placement. ALLERGIES: No known drug allergies. HOME MEDICATIONS: Tramadol 50 mg q.4-6 hours p.r.n. REVIEW OF SYSTEMS: Discussed with patient with pertinent positives stated in HPI. He denied any syncope, dizziness, any chest pain, palpitations, any nausea, vomiting, diarrhea, constipation, any cough, fever, shortness of breath, nausea, vomiting, diarrhea, constipation, any black or bloody vomitus or stools. PHYSICAL EXAMINATION: GENERAL: This is a 38-year-old gentleman who is lying on the stretcher in the emergency room in no distress. VITAL SIGNS: Blood pressure is 118/72, with a heart rate of 88, respirations are 18, temperature is 98.7 oral with room air sats 95-100%. EYES: Pupils are equal, round, react to light. EOMs are intact. Sclerae are anicteric. HEENT: Head is normocephalic, atraumatic. Mucous membranes are moist. NECK: Supple, with trachea midline. CARDIOVASCULAR: Regular rate and rhythm. S1 and S2 appreciated. No murmurs. He has no lower extremity edema. Calves are nontender to palpation. Peripheral pulses are palpable x 4 extremities. PULMONARY: Breath sounds are clear with no increased work of breathing noted. Chest rises and falls symmetrically with respiration. Chest wall is nontender to palpation. GASTROINTESTINAL: Abdomen is soft, nontender, nondistended with bowel sounds in all 4 quadrants. NEUROLOGIC: He is alert and oriented x 3. SKIN: Warm and dry. He does have an area to his right inguinal area that is firm with an open wound that measures approximately 2 cm. It does drain yellow and clear malodorous exudate. Right inguinal lymphadenopathy palpated , no mass appreciated. LABORATORY: WBC is 5.3, with hemoglobin 9.8, hematocrit 30.3, and platelets of 353,000. Sodium is 134, potassium 3.8, BUN 9, creatinine 0.5, with a glucose of 144. Urinalysis is essentially negative. Blood cultures and wound cultures are pending. ASSESSMENT AND PLAN: 1. Cellulitis right groin. Wound cultures have been obtained. We will start the patient on vancomycin dosed by pharmacy and Zosyn, and then further antibiotics will be culture driven. 2. History of squamous cell carcinoma of the penis. The patient is receiving chemotherapy per Dr. Sandoval. We will consult Dr. Sandvoal to follow. 3. Anemia secondary to underlying malignancy. Will trend his hemoglobin and hematocrit and follow. 4. penile cancer s/p partial penectomy and lymph node biopsy which returns penile squamous cell carcinoma with lymph node metastasis - consult Wound Care. Further treatments pending hospital course. Dictated by VINNIE Zapata for Minesh Hansen MD cc: VINNIE Zapata MD [facility]
[2019-01-31] MEDS ORDERED: VANCOMYCIN 2 GM in NS 500 ML IV ONE (16:00)
--- NOTE | 2019-01-31 16:45 | Diag Imaging Result Doc PS360 ---
EXAM: CT PELVIS W/CONTRAST INDICATION: right groin wound, ? Abscess TECHNIQUE: This exam was performed using automated exposure control, adjustment of mA or kV according to patient size, and/or use of iterative reconstruction technique. COMPARISON: 10/17/2018 FINDINGS: There has been a prior partial penectomy for squamous cell carcinoma of the penis. In the right groin, there is a large irregular necrotic mass with heterogeneous enhancement. It has increased in size during the interval measuring 12.2 x 9.9 cm axially (10.0 x 6.8 cm previously). It measures up to 15 cm in length on the coronal reformatted images. This is consistent with metastatic disease that probably began as inguinal lymphadenopathy. There is also a fluid component within the mass with droplets of gas. This suggests superimposed infection with secondary abscess formation. No intrapelvic extension is appreciated. There has been development of mild erosion of the adjacent superior pubic ramus near the acetabulum. No other discrete bony lesions are identified. The intrapelvic viscera are unremarkable. IMPRESSION: Interval increase in size of the large necrotic right groin mass that is now causing mild adjacent bony erosion. Given that there is a liquid component and a few internal gas droplets, superimposed abscess cannot be excluded. Electronically signed by Edmond Crowe 01/31/2019 4:43 PM
--- NOTE | 2019-01-31 17:23 | HISTORY AND PHYSICAL ---
The patient came in with purulent drainage for the last 4 days. He has a history of squamous cell cancer of the penis with lymphovascular invasion. He is very strongly malodorous. He was just here about [address] Hdez saw him then, and I am not sure [*]any other treatment, Dr. Sandoval as well. Now he has significant drainage, purulent drainage on physical exam, which is extremely foul smelling. No white, count though. CT scan though shows an interval increase in the size of a large necrotic right groin mass that is now causing mild adjacent bony erosion and there is concern over abscess. We will admit him for IV antibiotics and consultation with Urology, although I think Dr. Hdez is considering transferring him to a larger center to handle his issues. This is a [id number] encounter note with Kerri Hurt. cc: Minesh Hansen MD
[2019-01-31] MEDS: ZOSYN 3.375 GM in NS 50 ML IV SCH (18:19)
[2019-01-31] MEDS ORDERED: CUBICIN 600 MG in NS 100 ML IV SCH (20:00)
--- NOTE | 2019-01-31 20:28 | CONSULTATION ---
DATE OF CONSULTATION: 01/31/2019 CHIEF COMPLAINT: Right inguinal lymphadenopathy with superimposed infection. HISTORY OF PRESENT ILLNESS: Mr. Sean Suero is a 38-year-old male who was diagnosed with penile cancer with lymph node metastasis back in November. 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 Oropeza. He was referred to Urology and underwent a partial penectomy in mid November with T3 disease. The patient initially was having some inguinal pain and swelling in his inguinal area when referred to Urology, but over the past several weeks the patient denies having any pain. He states that he has had some drainage from his right groin, but it has become more malodorous drainage, with concern for infection. Patient was seen today in Hematology/Oncology office, and Dr. Sandoval called me in Urology office, and we discussed the patient's care. I recommended sending him to the hospital for evaluation for working lymphadenopathy and possible groin infection as it did sound like he was having a groin infection and likely needed IV antibiotics. The patient has completed 3 rounds of chemotherapy from Dr. Sandoval, most recently from 01/17/2019 to 01/20/2019. The patient has been seen in Urology office regularly over the past 2 months and has had significant inguinal lymphadenopathy, which seemed to have gotten better at most recent appointment 2 weeks ago and was schedule to be seen today in the office. The patient denied any fevers or chills at home. He does state that several days ago he began having increased drainage from his inguinal area. 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 PAST SURGICAL HISTORY: 1. Resection of right index finger. 2. Partial penectomy with creation of meatal urethra. 3. Inguinal lymph node biopsy by Dr. Oropeza. ALLERGIES: No known drug allergies. HOME MEDICATIONS: Tramadol. SOCIAL HISTORY: Denies history of tobacco, alcohol, or illicit drug use. FAMILY HISTORY: Denies family history of malignancy. PHYSICAL EXAMINATION: Vital Signs: Temperature 99.8 degrees, heart rate 92, blood pressure 124/67, oxygen saturation 100% on room air. General: No acute distress. Resting comfortably in bed. Alert and oriented x3. HEENT: Normocephalic, atraumatic. Pupils equal, round, reactive to light. Mucous membranes moist. Neck: Trachea midline with no palpable masses. Respiratory: Good respiratory effort without audible wheezing or rale. Cardiovascular: 1+ lower extremity edema, most prominent on the right lower extremity. S1, S2 heart sounds with regular rate and rhythm. Abdomen: Soft, nontender, nondistended. No palpable masses. Genitourinary: Bilateral testicles palpated without mass. There was evidence of a partial penectomy with patent neourethra that had slightly more stenotic recently and well healed. The patient has foul- smelling right inguinal lymphadenopathy. There was purulent drainage that does appear to likely be necrotic tumor and superimposed infection. Right lymphadenopathy does appear to be slightly smaller than prior evaluations and does feel less firm or erythematous. The patient has several shotty nodes on the left side. Musculoskeletal: Moving all extremities. Neurologic: Gross motor and sensory intact. SKIN: No obvious rashes or lesions. LABORATORY DATA: White blood cell count 5.3, hemoglobin 9.8, hematocrit 30.3, platelets 353,000. Sodium 134, potassium 3.8, chloride 95, bicarb 24, BUN 9, creatinine 0.5, glucose 144. AST 33, ALT 87, alkaline phosphatase 102. Urine negative for blood, nitrite, leukocytes. There are trace ketones and 30 of protein. No evidence of any bacteria. IMAGING: CT pelvis obtained today which showed worsening of lymphadenopathy with increased size and progression deeper into the pelvis and right lower extremity, seems to abut the pubic rami with no obvious intra-abdominal lymphadenopathy. Lesion measures 12x10 cm in size. There is air present, which likely is related to the draining fluid from the wound itself. ASSESSMENT AND PLAN: Mr. Sean Suero is a 38-year-old male who was diagnosed with squamous cell of the inguinal area and was referred to Urology at which time I evaluated him back in November and underwent partial penectomy. Subsequently, coordinated care with Hematology/Oncology and patient received 3 rounds of chemotherapy. Patient was seen at Hem/Onc clinic today and was found to have a right groin infection with purulent drainage. It appears that patient his having infection with necrotic tumor. The wound itself actually has decreased lymphadenopathy on exam; however, CT scan does show that the lymphadenopathy seemed to have grown into the deeper lower extremity and pelvis, which seems to abut the pubic rami on the right, which has definitely worsened over time. 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 I do think that some of the appearance of the scan is likely related to abscess, but I am concerned that it seems to be spreading deeper into his groing, and there is concern that there is erosion into the right superior pubic rami. Talking with Dr. Sandoval, the patient seems to have gotten his max dose of chemotherapy. My concern with his current presentation and CT findings is that patient likely would need referral to academic center. I talked with family before about trying to obtain gutierrez care through [facility] and have contacted [facility] in the past on the patient's behalf; however, he was not going to be accepted until he receives [facility] care. The family supposedly had filled out the paperwork and were waiting on this to return. Talking with family present today, it does not appear that this was ever sent. I again reiterated to try to obtain this paperwork from [facility] and send it back to them to ensure that he can get care there. I have become more concerned with his superimposed infection and worsening lymphadenopathy thinking that he may need secondary chemotherapy regimen versus aggressive surgical resection. The patient if underwent lymphadenopathy would need a large skin graft likely. Discussed previously with Plastic Surgery, and patient would not be a candidate for any type of flap at [facility]. I think ultimately patient would benefit from referral to tertiary care center for evaluation by Urologic Surgical Oncologist and likely inguinal lymph node dissection versus secondary chemotherapy regimen. Discussed case with Dr. Daniel Bangura at [facility] this afternoon. He states he would gladly see him in consult. Talk with Dr. Bangura and will recommend referral to the hospitalist at [facility]. We will assist with any coordination of care if necessary and will continue to follow patient while at [facility]. Recommend to continue IV antibiotics, currently on vancomycin and Zosyn, which I think is good broad coverage for him at this time. We will continue to monitor. Please call with questions or concerns. cc: MD BUDDY Childs
[2019-01-31] MEDS: MORPHINE IV PRN (22:14)
[2019-02-01] MEDS: ZOSYN 3.375 GM in NS 50 ML IV SCH ×4 (01:09→18:41)
[2019-02-01] MEDS: NS 1,000 ML IV SCH ×3 (01:10→16:39)
[2019-02-01] MEDS ORDERED: LOVENOX SUBQ SCH ×2 (03:38→17:00)
[2019-02-01] MEDS ORDERED: VANCOMYCIN 1,500 MG in NS 250 ML IV SCH (04:00)
--- NOTE | 2019-02-01 07:06 | PROGRESS NOTE ---
DATE: 02/01/2019 SUBJECTIVE: The patient denies any pain this morning. Tolerating p.o. intake. Remains afebrile. Nurses recorded some pain that he described in his right calf. He denies any pain this morning. The patient had a CT angiogram of his chest, which showed no evidence of clots. The patient denies any shortness of breath or increase in his heart rate. The patient overall states he feels well. Denies any groin pain. OBJECTIVE: Vital signs: Temperature 98.6, heart rate 91, blood pressure 132/76, O2 saturation 100% on room air. General: No acute distress. Resting comfortably in bed. Answers questions appropriately. Respiratory: Good respiratory effort without audible wheezing or rales. Abdomen: Soft, nontender, nondistended. Genitourinary: Partial penectomy with neourethra, which appears to be appropriately patent. The bilateral testicles palpated without masses. The patient's groin swelling is decreased, it is covered with a dressing. This has been exchanged by nursing staff and was changed most recently this morning. Extremities: The patient does have some edema of his right lower extremity. No obvious erythema or pain to palpation. ASSESSMENT AND PLAN: Mr. Sean Suero is a 38-year-old male who was diagnosed with squamous cell carcinoma of the inguinal area and then was referred to Urology for a penile mass. This was resected and the patient underwent a partial penectomy with T3 disease in November. The patient had completed 3 rounds of chemotherapy [address] Dr[address] Sandoval and was doing relatively well, and was scheduled to be seen in the office yesterday. However, he presented to Hematology's office for scheduled appointment and was found to have significant amount of purulent drainage from his groin area. Concern arose that he had a groin infection complicated by his lymphadenopathy. The patient was recommended to proceed to the emergency room, was evaluated there, had a CT of the pelvis which showed that the mass within his right groin appeared to be increasing in size and began invading deeper into the pelvis with erosion into the right superior pelvic ramus. I discussed the case with Dr. Daniel Bangura at [facility] yesterday, and talked with Dr. Hansen here. Due to worsening cancer and likely need for either definitive surgical management or secondary chemotherapy regimens, recommended referral to an academic center. I discussed this with Dr. Penot yesterday. We will, again, call [facility] today regarding transfer. The patient clinically seems to be doing okay. He is on Zosyn and daptomycin for superimposed groin infection. We will follow up morning labs. The patient likely needs secondary chemo regimen versus a lymph node resection due to worsening disease. This was relayed to patient and his family this morning. All questions and concerns were addressed. Continue wound care per wound care nursing. We will continue to monitor. Please call with questions or concerns. cc: Iglesia Hdez MD [facility]
--- NOTE | 2019-02-01 07:17 | Diag Imaging Result Doc PS360 ---
EXAM: CT ANGIOGRM PULMONARY ARTERIES INDICATION: r/o PE TECHNIQUE: This exam was performed using automated exposure control, adjustment of mA or kV according to patient size, and/or use of iterative reconstruction technique. Thin section axial images and 3-D MIPS were obtained. COMPARISON: None. FINDINGS: There is no evidence of pulmonary embolism. There is no evidence of aortic dissection or aneurysm. There is no cardiomegaly. There is no evidence of significant mediastinal or hilar lymphadenopathy. There is a small calcified granuloma in the left upper lobe near the apex. There is minimal subsegmental atelectasis at the lung bases. The lungs are clear, otherwise. There is no pleural fluid collection and no pneumothorax. Limited views of the upper abdomen reveal mild to moderate hepatic steatosis. The bony structures are intact. There is no evidence of metastatic disease to the bony structures of the chest. IMPRESSION: Minimal bibasilar subsegmental atelectasis. No evidence of pulmonary embolism or acute pathology, otherwise. Electronically signed by Edmond Crowe 02/01/2019 7:14 AM
[2019-02-01 07:35] LABS: BASO# 0.03 X1000 (0.0-0.2); BASO% 0.5 % (0.0-0.8); EOS# 0.07 X1000 (0.0-0.7); EOS% 1.2 % (0.0-10.0); HEMATOCRIT 26.7 % (42.0-52.0); HEMOGLOBIN 8.4 g/dL (14.0-18.0); IMM GRAN# 0.05 X1000 (0.0-0.04); IMM GRAN% 0.8 % (0.0-0.5); LYMPH% 15.1 % (20.5-51.1); MCH 26.6 PG (27-31); MCHC 31.5 g/dL (33-37); MCV 84.5 FL (81-99); MONO# 0.98 X1000 (0.11-0.59); MONO% 16.4 % (1.7-9.3); MPV 8.9 FL (7.4-10.4); NEUT# 3.93 X1000 (1.4-6.5); PLT 347 X1000 (130-400); RBC 3.16 XMIL (4.7-6.1); RDW 15.5 % (11.5-14.5); WBC 5.96 X1000 (4.8-10.8)
[2019-02-01 07:58] LABS: AGAP 11; ALB/GLOB RATIO 0.9; ALBUMIN 2.9 g/dL (3.5-5.0); ALKALINE PHOSPHATASE 85 U/L (32-122); BUN 7 mg/dL (8-22); CALCIUM 8.6 mg/dL (8.8-10.2); CHLORIDE 102 mmol/L (98-107); COSMO 273; CREATININE 0.5 mg/dL (0.7-1.2); ESTIMATED GFR > 60; GLUCOSE 118 mg/dL (70-104); GOT 17 U/L (10-34); GPT 53 U/L (10-44); POTASSIUM 3.6 mmol/L (3.5-5.1); SODIUM 137 mmol/L (136-145); TCO2 24 mmol/L (25-35); TOTAL BILIRUBIN 0.45 mg/dL (0.20-1.00); TOTAL PROTEIN 6.2 g/dL (6.3-8.3)
[2019-02-01 09:15] LABS: IRON SATURATION 16 %; TIBC 118 ug/dL; TOTAL IRON 19 ug/dL (53-167); UNBOUND IRON 99 ug/dL (112-346)
--- NOTE | 2019-02-01 12:00 | HEMO/ONC CONSULTATION ---
DATE: 02/01/2019 CHIEF COMPLAINT: We have been consulted for management of patient's penile cancer. HISTORY OF PRESENT ILLNESS: Mr. Sean Suero was in our clinic yesterday complaining of increased drainage coming from that right inguinal mass. The patient said drainage started 2 days prior today. The patient says this drainage had a very foul odor. It was likely to be infected at that time. So Dr. Sandoval discussed with Dr. Hdez and patient proceeded to emergency department for further evaluation and IV antibiotics at that time. Once the patient was admitted, patient did have a CT scan of the pelvis shows increasing size of a large necrotic right groin mass that is now causing mild adjacent bony erosion. There is also a liquid component and a few internal gas pockets superimposed. Abscess could not be excluded at that time. The patient is well known to us in our clinic where he is being followed up for his squamous cell carcinoma of the penis and right inguinal lymph node metastasis. The patient received 3 doses of chemotherapy in the hospital. At this time, it looks like he has gotten all the treatments at this time for his condition. Dr. Hdez has been working on getting patient in with [facility]. The family has not gotten his gutierrez paperwork sent to [facility] at this time. The patient received his 3rd round of chemo on 01/17/2019 where he was receiving cisplatin, mannitol, ifosfamide chemotherapy. He tolerated those 3 cycles relatively well. PAST MEDICAL HISTORY: Squamous cell carcinoma of the penis and right inguinal lymphadenopathy. PAST SURGICAL HISTORY: Right index finger amputation, partial penectomy with creation of neourethra and lymph node biopsy and port placement. ALLERGIES: No known drug allergies. HOME MEDICATIONS: Tramadol every 6 hours as needed p.r.n., Zofran, Reglan and Phenergan. REVIEW OF SYSTEMS: Negative other than as mentioned in history of present illness. PHYSICAL EXAMINATION: Vital Signs: Temperature 99.1 degrees, heart rate 82, respiratory rate 19, blood pressure 98/58, saturation 100% on room air. General: Patient is awake, lying in bed, in no acute distress noted. HEENT: Anicteric. Mucous membranes appear to be moist. Neck: Supple. Trachea midline. No JVD. Lymph Node survey: Palpable nodes in the right groin area that has drainage and dressing in place. Cardiovascular: S1, S2. Regular rate and rhythm. Chest: Bilateral breath sounds clear to auscultation. Abdomen: Soft, nontender. Bowel sounds present all 4 quadrants. Skin: Warm, dry, drainage noted to the right groin area. Neurologic: Alert and oriented x3. No focal deficits noted. LABORATORY DATA: White blood cell count 5.96, hemoglobin 8.4, hematocrit 26.7, platelets are 347,000. Potassium 3.6, BUN 7, creatinine 0.5, ferritin 1080, % saturation 16. RADIOLOGY REPORTS: A CT of the pelvis showed interval increase in size of large necrotic right groin mass that is now causing mild adjacent bony erosion. Possible superimposed abscess. Pulmonary arteriogram was negative for pulmonary embolism. ASSESSMENT AND PLAN: 1. Squamous cell carcinoma of the penis with right inguinal lymph node involvement: Patient has finished 3 treatments of chemotherapy and finished chemotherapy at this time. Dr. Hdez is trying to get the patient transferred to [facility] to see Oncology Urology there for further evaluation. Family needs to be working on sarvaMAILwork. They have not done so at this time. We will continue to monitor and follow along. 2. Abscess with infection to the right groin: Mass is invading into the pelvis bone. Patient will be transferred to [facility] once they have a bed and accept him. At this time. Continue antibiotics as ordered by Urology and Primary Medical Team. Continue to monitor. 3. Anemia: Hemoglobin and hematocrit today is 8.1 and 26.7, most likely chemotherapy related. Continue to monitor at this time. Transfuse for any signs of bleeding or if continues to trend downward. Plan of care discussed with Dr. Sandoval. Dictated by VINNIE Traylor for Danis Sandoval MD cc: VINNIE Traylor MD [facility]
[2019-02-01] MEDS: MORPHINE IV PRN (12:37)
--- NOTE | 2019-02-01 15:13 | DISCHARGE SUMMARY ---
ADMISSION DATE: 01/31/2019 DISCHARGE DATE: 02/01/2019 CONSULTANTS: Urology, Dr. Iglesia Hdez; Oncology, Dr. Sandoval. IMAGING: CT of the abdomen and pelvis showing increase in size of large necrotic right groin/pelvic mass, now causing adjacent bony erosion of the right superior pubic ramus. Mass measures approximately 12 x 10 x 15, significantly increased from previous. Also noted is significant inguinal lymphadenopathy and fluid component with gas, suggesting abscess formation as well. CTA of chest is showing no PE. Preliminary report on right lower extremity ultrasound just prior to discharge showing extensive right lower extremity DVT. DISCHARGE DIAGNOSES: 1. Advanced stage squamous cell carcinoma of the groin. 2. Pelvic abscess. 3. Groin cellulitis. 4. Right lower extremity deep venous thrombosis. HOSPITAL COURSE: The patient is a 38-year-old male diagnosed as an outpatient with penile/groin cancer, squamous cell carcinoma. It was moderately differentiated with lymphovascular invasion and lymph node metastasis. He previously had a partial penectomy. The patient returned to outpatient care, was noted to have purulent drainage from his groin. He was sent to the ER. There, we found an enlarging pelvic mass and lymphadenopathy with likely abscess formation. The patient was started on antibiotics, initially with vancomycin and Zosyn. Vancomycin was subsequently changed to daptomycin. Discussed with urology and oncology here. They felt that the patient was likely to need extensive aggressive surgical debridement which was beyond the scope of what they felt comfortable performing here. Urology here discussed the case with Dr. Daniel Bangura at [facility] with urology there, who was amenable to seeing the patient. Discussed possible transfer with the hospitalist at [facility]. They deferred to urology. I then spoke with Dr. Bangura, who was amenable to accepting the patient. The patient remained afebrile throughout his hospitalization with a max temperature of 99.8 degrees. He had mild anemia which remained essentially stable with only a slight drop after admission. Iron studies were unremarkable, so favor anemia of chronic disease versus chemotherapy side effect. On the second day of his admission, the patient complained of right calf pain. There was a little swelling. No cords noted on exam. Concern for DVT was initially low but ultrasound and a CTA were obtained because of elevated d-dimer. CTA was negative but just prior to discharge, the preliminary report on the right lower extremity ultrasound was called to me, stating he did have extensive DVT in the right lower extremity. He was placed on full-dose Lovenox. DISCHARGE VITAL SIGNS: Temperature 99.1 degrees, pulse 82, respirations 19, blood pressure 98/58, O2 saturation 100% on room air. DISCHARGE MEDICATIONS: Zosyn, daptomycin, Lovenox 1 mg/kg, Ultram, Zofran. FOLLOWUP AND PLAN: The patient is being transferred to [facility] for further surgical evaluation and likely further oncology evaluation. Greater than 30 minutes were spent arranging discharge and counseling the patient. [facility]
[2019-02-01 15:17] VITALS: BP 117/62
[2019-02-02] MEDS ORDERED: LOVENOX SUBQ SCH (03:38)
--- NOTE | 2019-02-02 17:27 | Extremity Venous Study ---
PROCEDURE NAME: Venous U/S Bilateral Legs - 01/31/2019 REFERRING PHYSICIAN: Dr. Bernard INTERPRETING PHYSICIAN: Spencer Guerrier MD [facility] WORKER: René. INDICATION: She is here to rule out DVT. FINDINGS: The right lower extremity shows the common femoral, deep femoral, superficial femoral, popliteal, posterior tibial, peroneal, and greater saphenous veins are imaged bilaterally. There is non-compressibility of the right common femoral, right superficial femoral, right popliteal, right posterior tibial, and right greater saphenous veins. All veins on the left are compressible. INTERPRETATION: 1. Deep venous thrombosis involving the right common femoral, superficial femoral, popliteal, and posterior tibial veins. 2. There is superficial venous thrombosis involving the right greater saphenous vein. cc: Spencer Guerrier MD
== END 2019-02-01 18:30 | disposition short-term general hospital (02) | DRG 372 ==
LOC: ED 09:39 → 3N 14:25 → SUATTDRO 14:25
PROVIDERS: ATTEND Internal Medicine
CPT/HCPCS: 71275; 72193; 80053; 81001; 82728; 83540; 83550; 83605; 85025; 85379; 87040; 87070; 87077; 87186; 93970; 96361; 96365; 96375; 99285; J0878; J1650; J2270; J2405; J2543; J3370; J7030; J7040; Q9967